=== PATIENT | male | born 1980 | race Caucasian/White ===

== ENCOUNTER → 2017-11-12 09:03 | Outpatient (CLI) | payer OTHER, SELFPAY ==
[2017-11-12 10:16] LABS: Absolute Lymphocyte Count 0.77 X10^3/ul (0.83-4.51); Absolute Neutrophil Count 3.6 X10^3/uL (2.0-7.7); Basophil# 0.02 X10^3/uL; Basophil% 0.4 % (0-1); Eosinophil# 0.02 X10^3/uL; Eosinophils% 0.4 % (0-5); Hematocrit 44.5 % (40-54); Hemoglobin 15.7 g/dl (13.0-16.5); Lymphocyte # 0.77 X10^3/ul (4.0); Mean Corp Hgb Conc 35.3 g/gl (32-36); Mean Corpuscular Hgb 31.2 pg (27.0-32.0); Mean Corpuscular Volume 88.3 fL (80-94); Mean Platelet Vol. 11.9 fl (6.2-12.0); Monocyte# 0.74 X10^3/uL; Monocyte% 14.4 % (0-10); Neutrophil # 3.58 X10^3/uL (2.7-7.7); Neutrophil % 69.8 % (47-70); Platelet Count 115 K/mm3 (150-450); RBC Distribution Width CV 12.2 % (11.6-14.6); RBC Distribution Width SD 39.2 fl (35.1-43.9); Red Blood Count 5.04 M/mm3 (4.6-6.2); White Blood Count 5.1 K/mm3 (4.4-11.0)
[2017-11-12 10:19] LABS: POSITIVE COUNT NO; POSITIVE DIFFERENTIAL NO; POSITIVE MORPHOLOGY NO
[2017-11-12 13:44] LABS: Hemoglobin A1c 5.2 % (4.2-6.3)
[2017-11-12 13:52] LABS: ALB/GLOB Ratio 1.2 RATIO (0.9-2.4); AST(SGOT) 22 U/L (15-37); Alanine Aminotransfer ALT/SGPT 33 U/L (16-61); Albumin, Serum 3.9 g/dL (3.2-5.0); Alkaline Phosphatase 77 U/L (45-117); BUN 15 mg/dL (7-18); Calcium,Total 8.8 mg/dL (8.5-10.1); Cholesterol 103 mg/dL (200); EST Glomerular Filtration Rate 89 mL/min (>60); Est Glom Filt Rate - Afr Amer 108 mL/min (>60); Globulin 3.3 g/dL (2.2-4.2); Glucose 83 mg/dL (74-106); Protein, Total 7.2 g/dL (6.4-8.2); Triglycerides 72 mg/dL
[2017-11-12 13:53] LABS: Anion Gap 8 (5-15); Chloride 102 mmol/L (98-107); Ferritin 232 ng/mL (26-388); Follicle Stimulating Hormone 1.5 mIU/mL; Free T3 2.7 pg/mL (2.18-3.98); High Density Lipoprotein 35 mg/dL; Iron 25 ug/dL (65-175); Iron Binding Capacity,Total 241 ug/dL (250-450); Luteinizing Hormone 2.6 mIU/mL; PERCENT IRON SATURATION 10.4 % (15.0-55.0); PSA,Total - Annual Screen 0.37 ng/mL (0.00-4.00); Potassium 3.7 mmol/L (3.5-5.1); Sodium Level 138 mmol/L (136-145); T4 Free Direct 1.25 ng/dL (0.76-1.46); Very Low Density Lipoprotein 14 mg/dL (5-40)
[2017-11-16 09:55] LABS: DHEA Sulfate 198.7 ug/dL (102.6-416.3); Estrogen, Total, Serum 97 pg/mL (40-115); Testosterone Free 8.7 pg/mL (8.7-25.1)
[2017-11-16 15:44] LABS: Adrenocorticotropic Hormone 18.7 pg/mL (7.2-63.3); Sex Hormone-binding Globulin 24.8 nmol/L (16.5-55.9)
== END ==
PROVIDERS: Family Provider Family Medicine; PCP Family Medicine; Visit Provider Internal Medicine Endocrinology, Diabetes & Metabolism
DX: E29.1 Testicular hypofunction (principal); R53.83 Other fatigue; Z13.1 Encounter for screening for diabetes mellitus
CPT/HCPCS: 36415; 80053; 80061; 82024; 82533; 82627; 82672; 82728; 83001; 83002; 83036; 83540; 83550; 84153; 84270; 84402; 84403; 84439; 84443; 84481; 85025; 82626; G0103

== ENCOUNTER → 2017-11-22 08:13 | Outpatient (CLI) | payer OTHER, SELFPAY ==
--- NOTE | 2017-11-22 08:16 | US_ITS ---
STUDY: ULTRASOUND BREAST - RIGHT REASON FOR EXAM: Male, 37 years old. History of right breast cysts. TECHNIQUE: Axial and longitudinal images of the RIGHT breast were performed with a high resolution ultrasound transducer. COMPARISON: Comparison is made with prior similar examination dated March 07, 2016. FINDINGS: RIGHT Breast: Once again, in the retroareolar region of the right breast, there are 2 subcentimeter cysts. The larger measures 4 mm x 3 mm x 2 mm. US/Breast Limited Unilateral IMPRESSION: Stable examination. ASSESSMENT CATEGORY: BIRADS Category 2: Benign. A letter regarding these results will be sent to the patient by the facility within 30 days. Electronically Signed: Wilmer Camejo MD at 10:54 EST Tel [phone], Service support ,
--- NOTE | 2017-11-22 11:14 | MRI_ITS ---
STUDY: MRI BRAIN WITH AND WITHOUT CONTRAST REASON FOR EXAM: Male, 37 years old. Low testosterone TECHNIQUE: Standardized multiplanar fat and water weighted pulse sequences were obtained. 10 ml of Gadavist contrast material was administered intravenously for the contrast portion of the examination. COMPARISON: April 27, 2013 FINDINGS: Normal size of the ventricles and extra-axial spaces for the patient's age. Normal white matter tracts of the supratentorial brain. There is no evidence for recent intracranial ischemia or other cause of cytotoxic edema on diffusion weighted imaging (DWI). Normal bilateral basal ganglia. Normal thalami. There is no extra-axial fluid accumulation. Normal flow voids within the major intracranial circulation suggesting patency by spin echo criteria. Normal venous enhancement. There is no enhancing intra-axial or extra-axial abnormality. Normal sella turcica, pituitary gland, infundibular stalk, optic chiasm and hypothalamus. Normal tectal plate and pineal gland. Normal midbrain, guera and medulla. Normal cerebellum. Normal basal cisterns. Normal bilateral temporal bones. Normal bilateral internal auditory canals. No demonstrated orbital abnormality, within the constraints of a routine brain study. There is an air-fluid level and mucosal thickening in the left maxillary sinus. Normal calvarium and skull base. Normal visualized soft tissue structures. Normal visualized upper cervical spine. IMPRESSION: Normal unenhanced and enhanced MRI of the brain. Acute left maxillary sinusitis. Electronically Signed: Chidi Dutta MD at 23:58 EST , Service support , STUDY: MRI BRAIN WITH AND WITHOUT CONTRAST (ATTENTION PITUITARY GLAND) REASON FOR EXAM: Male, 37 years old. Low testosterone TECHNIQUE: Standardized multiplanar fat and water weighted pulse sequences were obtained. 10 ml of Gadavist contrast material was administered intravenously for the contrast portion of the examination. COMPARISON: See also MR brain from today FINDINGS: Normal size of the pituitary gland for the patient?s age and gender. Normal enhancement of the pituitary gland, without a demonstrated intrapituitary lesion. Normal infundibular stalk and suprasellar cistern. Normal optic chiasm and hypothalamus. Normal size of the ventricles and extra-axial spaces for the patient's age. Normal white matter tracts of the supratentorial brain. Normal bilateral basal ganglia. Normal thalami. Normal flow voids within the major intracranial circulation suggesting patency by spin echo criteria. Normal venous enhancement. There is no enhancing intra-axial or extra-axial abnormality. There is no extra-axial fluid accumulation. Normal tectal plate and pineal gland. Normal midbrain, guera and medulla. Normal cerebellum. Normal basal cisterns. Normal bilateral temporal bones. Normal bilateral internal auditory canals. No demonstrated orbital abnormality, within the constraints of a routine brain study. Left maxillary sinusitis. Normal calvarium and skull base. Normal visualized upper cervical spine. Normal visualized soft tissue structures. MRI/Brain W/WO Contrast IMPRESSION: Normal unenhanced and enhanced MRI of the pituitary gland. Acute left maxillary sinusitis. Electronically Signed: Chidi Dutta MD at 23:59 EST , Service support ,
== END ==
PROVIDERS: Family Provider Family Medicine; PCP Family Medicine; Visit Provider Internal Medicine Endocrinology, Diabetes & Metabolism
DX: N63.10 Unspecified lump in the right breast, unspecified quadrant (principal); E29.1 Testicular hypofunction
CPT/HCPCS: 70553; 76642; A9585

== ENCOUNTER → 2018-07-23 07:01 | Outpatient (CLI) | payer OTHER, SELFPAY ==
[2018-07-23 10:02] LABS: Absolute Lymphocyte Count 1.47 X10^3/ul (0.83-4.51); Absolute Neutrophil Count 5.1 X10^3/uL (2.0-7.7); Basophil# 0.01 X10^3/uL; Basophil% 0.1 % (0-1); Eosinophil# 0.09 X10^3/uL; Eosinophils% 1.2 % (0-5); Hematocrit 47.6 % (40-54); Hemoglobin 15.8 g/dl (13.0-16.5); Lymphocyte # 1.47 X10^3/ul (4.0); Lymphocyte % 19.8 % (19-41); Mean Corp Hgb Conc 33.2 g/gl (32-36); Mean Corpuscular Hgb 31.2 pg (27.0-32.0); Mean Corpuscular Volume 94.1 fL (80-94); Monocyte# 0.72 X10^3/uL; Monocyte% 9.7 % (0-10); Neutrophil # 5.12 X10^3/uL (2.7-7.7); Neutrophil % 69.1 % (47-70); Platelet Count 194 K/mm3 (150-450); RBC Distribution Width CV 13.4 % (11.6-14.6); RBC Distribution Width SD 45.6 fl (35.1-43.9); Red Blood Count 5.06 M/mm3 (4.6-6.2); White Blood Count 7.4 K/mm3 (4.4-11.0)
[2018-07-23 10:03] LABS: POSITIVE COUNT NO; POSITIVE DIFFERENTIAL NO; POSITIVE MORPHOLOGY NO
[2018-07-23 10:19] LABS: ALB/GLOB Ratio 1.1 RATIO (0.9-2.4); AST(SGOT) 29 U/L (15-37); Alanine Aminotransfer ALT/SGPT 54 U/L (16-61); Albumin, Serum 3.9 g/dL (3.2-5.0); Alkaline Phosphatase 57 U/L (45-117); Anion Gap 7 (5-15); BUN 15 mg/dL (7-18); BUN/Creat Ratio 14.9 RATIO (10-20); Calcium,Total 9.2 mg/dL (8.5-10.1); Chloride 107 mmol/L (98-107); Creatinine, Serum 1.01 mg/dL (0.70-1.30); EST Glomerular Filtration Rate 87 mL/min (>60); Est Glom Filt Rate - Afr Amer 106 mL/min (>60); Estradiol < 11.0 pg/mL; Globulin 3.6 g/dL (2.2-4.2); Glucose 68 mg/dL (74-106); Potassium 4.3 mmol/L (3.5-5.1); Protein, Total 7.5 g/dL (6.4-8.2); Sodium Level 139 mmol/L (136-145)
[2018-07-28 16:07] LABS: Testosterone, Free 16.28 ng/dL (5.00-21.00)
[2018-07-30 13:10] LABS: Testosterone, % Free 7.11 % (1.50-4.20); Testosterone, Total 229 ng/dL (264-916)
== END ==
PROVIDERS: Family Provider Family Medicine; PCP Family Medicine; Referring Provider Internal Medicine Endocrinology, Diabetes & Metabolism; Visit Provider Internal Medicine Endocrinology, Diabetes & Metabolism
DX: E29.1 Testicular hypofunction (principal)
CPT/HCPCS: 36415; 80053; 82670; 84402; 84403; 85025

== ENCOUNTER → 2018-09-19 14:39 | Outpatient (CLI) | payer OTHER, SELFPAY ==
[2018-07-21 07:48] VITALS: BMI 31.6
--- NOTE | 2018-09-19 14:42 | RAD_ITS ---
STUDY: X-RAY - LEFT KNEE REASON FOR EXAM: Male, 38 years old. Pain TECHNIQUE: 3 view(s) of the knee. COMPARISON: None. FINDINGS: Normal visualized distal femur. Normal visualized proximal tibia and fibula. Normal proximal tibiofibular articulation. There is no demonstrated fracture. Normal medial femorotibial compartment. Normal lateral femorotibial compartment. Normal patellofemoral articulation. There is no demonstrated joint effusion. The soft tissue structures are unremarkable. RAD/Knee 3 Views IMPRESSION: Normal x-ray examination of the knee. Electronically Signed: Tanner Hart MD at 23:58 EST , Service support ,
== END ==
PROVIDERS: Family Provider Family Medicine; PCP Family Medicine; Referring Provider Family Medicine; Visit Provider Family Medicine
DX: M25.562 Pain in left knee (principal)
CPT/HCPCS: 73562

== ENCOUNTER 2018-10-16 13:27 | Outpatient (RCR) | payer OTHER, SELFPAY ==
--- NOTE | 2018-10-20 07:38 | HP.PTEVAL_ITS ---
Patient's Visit Information NAPOLEON GONZALEZ is a 38 year old M referred to Physical Therapy by Fernando Ricardo MD with a diagnosis of L knee pain. Date of Evaluation: 10/16/18 Physical Therapist: Antonio Martinez DPT - Visit Plan Frequency: 2x /Week Duration: 4 Weeks Plan: I suggest patient receive an MRI at this point in time. I do believe he has a posterior horn meniscal tear. I gave him some stretching exercises to work on TKE and light isometrics to increase L quad/HS muscle activitation. - Subjective Findings: Pt. is here today for his initial evaluation with diagnosis of L knee pain. He reprots having pain for ~3-4 weeks now. 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 At end range flexion pt. reports feeling a crunch in his L knee. Pt. has had pain ever since. Pt. reports pain with wa lking, end ranges of motion, walking, any attempts with lifting and with stair negotiation. Pt. also notices marked L VMO atrophy. Pt. is concerned that he torn something when this happened. Pt. reports no improvement. He has trialed ice, medication, icing, stretching with no change. 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 Pt. is hopeful to figure out what is going on in his knee. - Pain L knee pain Pain Intensity (Out of 10): 4 Pain Intensity Range: 2, 8 - Objective POSTURE: Pt. has normal posture, except sligth R lateral lean and lacking L TKE. Pt. repots increased posterior pain with attempts to extend. PALPATION: Pt. has slight joint effusion. Pt. has increased pain at medial and lateral joint line of L knee. Pt. also has greater pain at popliteal fossa both medial and laterally. NEURO: All intact without issues. Pt. has normal DTR of bilateral a chilless and patellar tendons. ROM: R knee 0-0-137deg. L knee 0-5-120deg increased pain with both flexion and extension. MMT: RLE- 5/5 throughout; L knee- ext 4/5 increase NW, flexion 4/5 increase NW; hip- 5/5 throughout. GAIT: Pt. has antalgic pattern during L stance phase. Pt. lacks R TKE during stance. STAIRS: Pt. has increased pain with both ascending and descending during L loading phases. - Special Tests L Knee Jerry - Meniscus: Positive L Knee Apley - Meniscus: Positive L Knee Disco Test - Meniscus: Positive L Knee Luz - ACL: Negative L Knee Posterior Drawer - PCL: Negative L Knee Posterior Sag - PCL: Negative L Knee Valgus - MCL: Negative L Knee Varus - LCL: Negative L Knee Patellar Apprehension - PFS: Negative - Goals Goal 1:: Pt. to be I with HEP. Goal Time Frame: 4-6 Weeks Goal 2:: Pt. to have increased L knee ROM to full without increased in symptoms. Goal Time Frame: 4-6 Weeks Goal 3:: Pt. to walk and negotiate steps without incerase in symptoms. Goal Time Frame: 4-6 Weeks Goal 4:: Pt. to have increased LLE strength increased by 1/2 grade of all effected musculature to increase stability of L knee. Goal Time Frame: 4-6 Weeks Goal 5:: Pt. to return to all work and recreational activities withtou incerase in symtpoms. Goal Time Frame: 4-6 Weeks - Rehabilitation Potential Physical Therapy Diagnosis: Pt. appears to have a L menical tear, most likely to posterior horn. I can not rule out ACL injury as he was highly guarding. Due to mechanism of injury I would say most likely not an ACL tear. Pt. reports no steriod use, less likely to have ligament laxity. I would suggest patient recieve an MRI on his L knee allowing a quicker recovery and return back to work. Rehabilitation Potential: Fair - Anticipated Interventions Patient/Client Instruction: Educate patient on: Condition, Plan of Care, Risk Factors, Benefits of Fitness Program For the Purpose of:: To foster healthy habits, To improve decision making, To facilitate caregiver knowledge, To improve self management, To prevent re- injury, To improve ability to perform tasks related to life management, To improve tolerance to ADL's Therapeutic Exercise to Include: Strength training, Power training, Endurance training, Balance training, Postural training, Flexibilty training, Gait and locomotor training, Passive ROM, Active ROM For the Purpose of:: To decrease pain, To decrease swelling/inflammation, To increase ROM, To improve nutrient delivery to tissue, To increase oxygenation perfusion, To improve muscle performance and motor function, To improve health of tissue, To decrease soft tissue restriction, To increase flexibility/ROM, To improve endurance, To improve balance TENS: Yes IF ES: Yes Cryotherapy (ice pack, ice massage): Yes Ultrasound (thermal/non thermal): Yes For the Purpose of:: To decrease pain, To decrease swelling/inflammation, To increase ROM Thank you for the opportunity to evaluate your patient. For Medicare and Medicare HMO plans, please review the plan of care and approve it. It will need to be FAXED BACK to us at [phone] for Medicare purposes. For Medicare only, by signing this I certify the plan of care. Please let me know if there are questions or concerns regarding this plan of care. Physician Signature: Date:
--- OUTSIDE RECORDS SUMMARY | 2018-12-21 08:01 | XMS RPT_ITS ---
:1980 Author Organization OHIP Support Name Relationship Address Phone TARUN GONZALEZHA Unavailable [address] + [place] [address] WOOCI Unavailable [address] + [place] [address] GONZALEZ, KYLE Unavailable [address] + [place] [address] WOOCI Unavailable [address] + [place] [address] GONZALEZ, KYLE Unavailable [address] + [place] [address] WOOCI Unavailable [address] + [place] [address] GONZALEZ, KYLE Unavailable [address] + [place] [address] WOOCI Unavailable [address] + [place] [address] GONZALEZ, KYLE Unavailable [address] + [place] [address] WOOCI Unavailable [address] + [place] [address] GONZALEZ, KYLE Unavailable [address] + [place] [address] WOOCI Unavailable [address] + [place] [address] GONZALEZ, KYLE Unavailable [address] + [place] [address] WOOCI Unavailable [address] + [place] [address] GONZALEZ, KYLE Unavailable [address] + [place] [address] WOOCI Unavailable [address] + [place] [address] CARLOS, KYLE Unavailable [address] + [place] [address] WOOCI Unavailable [address] + [place] [address] CARLOS, KYLE Unavailable [address] + [place] [address] WOOCI Unavailable [address] + [place] [address] CARLOS, KYLE Unavailable [address] + [place] [address] WOOCI Unavailable [address] + [place] [address] GONZALEZ, KYLE Unavailable [address] + [place] [address] WOOCI Unavailable [address] + [place] [address] Care Team Providers Name Role Phone Elton Ricardo Attending Unavailable Ranney, Christopher Referring Unavailable Ranney, Christopher Primary Care Unavailable RanSyd boldener Attending Unavailable Ranney, Christopher Primary Care Unavailable Ryan Iraheta Attending Unavailable Ranney, Christopher Referring Unavailable Ryan Iraheta Attending Unavailable Fast, Christina Primary Care Unavailable Raghunathan, Rut N. Attending Unavailable Ranney, Christopher Primary Care Unavailable Raghunathan, Rut N. Attending Unavailable Raghunathan, Rut N. Referring Unavailable Ranney, Christopher Primary Care Unavailable Nicolas Cobb Attending Unavailable Ranney, Christopher Referring Unavailable Ranney, Christopher Primary Care Unavailable ASSESSMENT, HEALTH RISK Attending Unavailable Ranney, Christopher Primary Care Unavailable Nicolas Cobb Attending Unavailable Davion, Christopher Referring Unavailable Ragpacheco, Rut N. Attending Unavailable Ranney, Christopher Primary Care Unavailable Raghunathan, Rut N. 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 [facility] E29.1(ICD-10) Hospital Repository 07/21/2018 Unknown Z11.1 - Encounter Nicolas Cobb Active [place] for screening for [facility] respiratory Hospital tuberculosis / Repository Z11.1(ICD-10) 12/30/2017 Unknown Z00.00 - Encounter Nicolas Cobb Active [place] for general adult [facility] examination Repository without abnormal findings / Z00.00(ICD-10) 12/10/2017 Unknown N63.10 - Raghunathan, Active [place] Unspecified lump [place] [facility] Hospital breast, Repository unspecified quadrant / N63.10(ICD-10) 11/12/2017 Unknown Z13.1 - Encounter Raghunathan, Active [place] for screening for [place] N. [facility] diabetes mellitus Hospital / Z13.1(ICD-10) Repository 11/12/2017 Unknown R53.83 - Other Raghunathan, Active [place] fatigue / [place] N. Community R53.83(ICD-10) Hospital Repository 11/11/2017 Admitting Unknown / Monika De Anda Active [facility] diagnosis UNK(Unknown) [facility] Repository PROCEDURES PROCEDURES No Procedure Records FoundRESULTS RESULTS INITAL EVALUATION (1) Observed: 10/20/2018 Status: F Source: [place] - PT 7:38 AM [facility] REPOSITORY [facility] Physical Therapy Health[address] [place] [address] / REHABILITATION SERVICES INITIAL EVALUATION MR#: [id number] Acct: [id number] Name: NAPOLEON GONZALEZ Rep #: [id number] : 1980 38 From: Antonio Martinez DPT Referring Dr.: Elton Ricardo MD Status: REG RCR Insurance: [employer] SELF PAY INSURANCE Patient's Visit Information NAPOLEON GONZALEZ is a 38 year old M referred to Physical Therapy by Fernando Ricardo MD with a diagnosis of L knee pain. Date of Evaluation: 10/16/18 Physical Therapist: Antonio Martinez DPT - Visit Plan Frequency: 2x /Week Duration: 4 Weeks Plan: I suggest patient receive an MRI at this point in time. I do believe he has a posterior horn meniscal tear. I gave him some stretching exercises to work on TKE and light isometrics to increase L quad/HS muscle activitation. - Subjective Findings: Pt. is here today for his initial evaluation with diagnosis of L knee pain. He reprots having pain for 3-4 weeks now. 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 At end range flexion pt. reports feeling a crunch in his L knee. Pt. has had pain ever since. Pt. reports pain with walking, end ranges of motion, walking, any attempts with lifting and with stair negotiation. Pt. also notices marked L VMO atrophy. Pt. is concerned that he torn something when this happened. Pt. reports no improvement. He has trialed ice, medication, icing, stretching with no change. 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 Pt. is hopeful to figure out what is going on in his knee. - Pain L knee pain Pain Intensity (Out of 10): 4 Pain Intensity Range: 2, 8 - Objective POSTURE: Pt. has normal posture, except sligth R lateral lean and lacking L TKE. Pt. repots increased posterior pain with attempts to extend. PALPATION: Pt. has slight joint effusion. Pt. has increased pain at medial and lateral joint line of L knee. Pt. also has greater pain at popliteal fossa both medial and laterally. NEURO: All intact without issues. Pt. has normal DTR of bilateral achilless and patellar tendons. ROM: R knee 0-0-137deg. L knee 0-5-120deg increased pain with both flexion and extension. MMT: RLE- 5/5 throughout; L knee- ext 4/5 increase NW, flexion 4/5 increase NW; hip- 5/5 throughout. GAIT: Pt. has antalgic pattern during L stance phase. Pt. lacks R TKE during stance. STAIRS: Pt. has increased pain with both ascending and descending during L loading phases. - Special Tests L Knee Jerry - Meniscus: Positive L Knee Apley - Meniscus: Positive L Knee Disco Test - Meniscus: Positive L Knee Luz - ACL: Negative L Knee Posterior Drawer - PCL: Negative L Knee Posterior Sag - PCL: Negative L Knee Valgus - MCL: Negative L Knee Varus - LCL: Negative L Knee Patellar Apprehension - PFS: Negative - Goals Goal 1:: Pt. to be I with HEP. Goal Time Frame: 4-6 Weeks Goal 2:: Pt. to have increased L knee ROM to full without increased in symptoms. Goal Time Frame: 4-6 Weeks Goal 3:: Pt. to walk and negotiate steps without incerase in symptoms. Goal Time Frame: 4-6 Weeks Goal 4:: Pt. to have increased LLE strength increased by 1/2 grade of all effected musculature to increase stability of L knee. Goal Time Frame: 4-6 Weeks Goal 5:: Pt. to return to all work and recreational activities withtou incerase in symtpoms. Goal Time Frame: 4-6 Weeks - Rehabilitation Potential Physical Therapy Diagnosis: Pt. appears to have a L menical tear, most likely to posterior horn. I can not rule out ACL injury as he was highly guarding. Due to mechanism of injury I would say most likely not an ACL tear. Pt. reports no steriod use, less likely to have ligament laxity. I would suggest patient recieve an MRI on his L knee allowing a quicker recovery and return back to work. Rehabilitation Potential: Fair - Anticipated Interventions Patient/Client Instruction: Educate patient on: Condition, Plan of Care, Risk Factors, Benefits of Fitness Program For the Purpose of:: To foster healthy habits, To improve decision making, To facilitate caregiver knowledge, To improve self management, To prevent re-injury, To improve ability to perform tasks related to life management, To improve tolerance to ADL's Therapeutic Exercise to Include: Strength training, Power training, Endurance training, Balance training, Postural training, Flexibilty training, Gait and locomotor training, Passive ROM, Active ROM For the Purpose of:: To decrease pain, To decrease swelling/inflammation, To increase ROM, To improve nutrient delivery to tissue, To increase oxygenation perfusion, To improve muscle performance and motor function, To improve health of tissue, To decrease soft tissue restriction, To increase flexibility/ROM, To improve endurance, To improve balance TENS: Yes IF ES: Yes Cryotherapy (ice pack, ice massage): Yes Ultrasound (thermal/non thermal): Yes For the Purpose of:: To decrease pain, To decrease swelling/inflammation, To increase ROM Thank you for the opportunity to evaluate your patient. For Medicare and Medicare HMO plans, please review the plan of care and approve it. It will need to be FAXED BACK to us at [phone] for Medicare purposes. For Medicare only, by signing this I certify the plan of care. Please let me know if there are questions or concerns regarding this plan of care. Physician Signature: Date: <Electronically signed by Antonio Martinez DPT> 10/20/18 0738 CC: Elton Ricardo MD CLS Signed KNEE 3 VIEWS Observed: 09/19/2018 Status: F Source: [place] 2:43 PM [facility] REPOSITORY [facility] Imaging Services [address] [place] [address] Knee 3 Views MR#: [id number] Acct: [id number] Name: NAPOLEON GONZALEZ Rep #: [id number] : 1980 M 38 From: Tanner Hart MD PCP: Elton Ricardo MD Status: REG CLI Study: Knee 3 Views Date of Exam: 09/19/18 Exam# [id number] Ordering Dr: Fernando Ricardo MD STUDY: X-RAY - LEFT KNEE REASON FOR EXAM: Male, 38 years old. Pain TECHNIQUE: 3 view(s) of the knee. COMPARISON: None. FINDINGS: Normal visualized distal femur. Normal visualized proximal tibia and fibula. Normal proximal tibiofibular articulation. There is no demonstrated fracture. Normal medial femorotibial compartment. Normal lateral femorotibial compartment. Normal patellofemoral articulation. There is no demonstrated joint effusion. The soft tissue structures are unremarkable. RAD/Knee 3 Views IMPRESSION: Normal x-ray examination of the knee. 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: Signed CBC W/DIFF, AUTOMATED Collected: 07/23/2018 Status: F Source: [place] 7:04 AM [facility] REPOSITORY TYPE CODE TESTS RESULT OUT OF RANGE REFERENCE UNITS LAB L100.1000 4.4-11.0 K/mm3 Normal WBC 7.4 LAB L100.1200 4.6-6.2 M/mm3 Normal RBC 5.06 LAB L100.1300 13.0-16.5 g/dl Normal HGB 15.8 LAB L100.1400 40-54 % Normal HCT 47.6 LAB L100.1500 80-94 fL High MCV 94.1 LAB L100.1600 27.0-32.0 pg Normal MCH 31.2 LAB L100.1700 32-36 g/gl Normal MCHC 33.2 LAB L100.1810 11.6-14.6 % Normal RDW CV 13.4 LAB L100.1820 35.1-43.9 fl High RDW SD 45.6 LAB L100.1900 150-450 K/mm3 Normal PLT 194 LAB L100.2000 6.2-12.0 fl Normal MPV 11.0 LAB L100.2100 47-70 % Normal NEUT% 69.1 LAB L100.2200 19-41 % Normal LY% 19.8 LAB L100.2300 0-10 % Normal MONO% 9.7 LAB L100.2400 0-5 % Normal EO% 1.2 LAB L100.2500 0-1 % Normal BASO% 0.1 LAB L100.2550 0.0-0.9 % Normal IM GRAN % 0.100 Result Comment: IG% - Immature Granulocytes (promyelocytes, myelocytes and metamyelocytes) > 1% indicates that a LEFT SHIFT is Present. LAB L100.2620 2.0-7.7 X10 3/uL Normal Absolute Neut 5.1 LAB L100.2720 0.83-4.51 X10 3/ul Normal Absolute Lymph 1.47 Performed By: #### L100.0100 #### [facility] [address] [place], [address] COMPREHENSIVE METABOLIC Collected: 07/23/2018 Status: F Source: [place] [facility] 7:04 AM [facility] REPOSITORY TYPE CODE TESTS RESULT OUT OF RANGE REFERENCE UNITS LAB L501.0100 74-106 mg/dL Low GLU 68 Result Comment: Please note revised GLUCOSE reference range effective 2017. LAB L501.1000 7-18 mg/dL Normal BUN 15 LAB L501.1100 0.70-1.30 mg/dL Normal CREAT,SERUM 1.01 Result Comment: The validity of the calculated GFR AND GFRAA in patients over 70 years has not been determined. Clinical correlation is essential. LAB L501.1110 >60 mL/min Normal EST GFR 87 Result Comment: Non- GFR Calc LAB L501.1115 >60 mL/min Normal EST GFR - AA 106 Result Comment: GFR Calc LAB L501.1300 10-20 RATIO Normal BUN/CRE 14.9 LAB L501.1500 6.4-8.2 g/dL T Normal PROT 7.5 LAB L501.1800 3.2-5.0 g/dL Normal ALB 3.9 LAB L501.1950 2.2-4.2 g/dL Normal GLOB 3.6 LAB L501.2000 0.9-2.4 RATIO Normal A/G 1.1 LAB L501.2200 8.5-10.1 mg/dL CA Normal 9.2 LAB L501.4100 15-37 U/L Normal AST 29 LAB L501.4305 45-117 U/L Normal ALK P 57 LAB L501.4405 16-61 U/L Normal ALT 54 LAB L501.4600 0.20-1.00 mg/dL T Normal BILI 0.40 LAB L501.5300 136-145 mmol/L NA Normal 139 LAB L501.5600 3.5-5.1 mmol/L K Normal 4.3 LAB L501.5900 98-107 mmol/L CL Normal 107 LAB L501.6100 21.0-32.0 mmol/L Normal CO2 25.0 LAB L501.6200 5-15 Normal GAP 7 Performed By: #### L500.4050, L3300.1750 #### [facility] [address] [place], [address] ESTRADIOL Collected: 07/23/2018 Status: F Source: [place] 7:04 AM [facility] REPOSITORY TYPE CODE TESTS RESULT OUT OF RANGE REFERENCE UNITS LAB L3300.1750 pg/mL Normal ESTRADIOL < 11.0 Result Comment: NORMAL REFERENCE RANGES FEMALE FOLLICULAR 21.4 - 164.8 pg/mL MID-CYCLE PEAK 49.9 - 367.2 pg/mL LUTEAL 40.2 - 259.0 pg/mL POST-MENOPAUSAL ON MHT <11.0 - 462.1 pg/mL NOT ON MHT <11.0 - 58.3 pg/mL MALE <11.0 - 52.5 pg/mL NOTE: [facility] HAS CONFIRMED THE DRUG FULVETRANT (FASLODEX) MAY CAUSE FALSELY ELEVATED ESTRADIOL RESULTS WHEN USING THIS TEST METHOD. IF PATIENT IS TAKING FULVESTRANT AN ALTERNATIVE METHOD SHOULD BE USED TO DETERMINE ESTRADIOL CONCENTRATION. Performed By: #### L500.4050, L3300.1750 #### [facility] [address] [place], [address] TESTOSTERONE, TOTAL / Collected: 07/23/2018 Status: F Source: [place] FREE 7:04 AM [facility] REPOSITORY Order Comment: Has Patient had X-rays with Contrast this admission? N TYPE CODE TESTS RESULT OUT OF RANGE REFERENCE UNITS LAB L3100.5320 264-916 ng/dL Low 229 TESTOSTER,TO ROSLYN Result Comment: Adult male reference interval is based on a population of healthy nonobese males (BMI <30) between 19 and 39 years old. Yaya et.al. JCEM 2017,102;9159-6929. PMID: [id number]. LAB L3100.5340 5.00-21.00 ng/dL TESTOSTER,FREE Normal 16.28 LAB L3100.5360 1.50-4.20 % TESTOSTER %FREE High 7.11 Result Comment: Results verified by repeat testing Performed at: [facility] [address] [place], [place] [id number] Health And Safety Coordinator: Chris Portillo PhD, Phone: [phone] Performed at: [facility] [id number] Health And Safety Coordinator: Olivier Cerda MD, Phone: [phone] Performed By: #### L3100.5310 #### [facility] (refer to report for specific site) refer to report for address and phone number OFFICE VISIT REPORT Observed: 07/21/2018 Status: F Source: [place] 8:16 [address] [place] [address] OFFICE VISIT Date of Service: 07/21/18 MR#: [id number] Acct: [id number] Patient: NAPOLEON GONZALEZ Rep #: [id number] : 1980 Provider: Nicolas KONG Age/Sex: 37/M Location: [facility] Status: Signed Intake Vital Signs07/21/18 Height 6 ft 07/21/18 Weight: 233 lb Intake Visit Reasons: WFD PHYSICAL Allergies shellfish derived Allergy (Verified 10/17/17 13:27) Anaphylaxis Medications No Known/Unobtainable [No Known Home Medications] 06/20/17 [History Confirmed 10/17/17] Office Procedures PPD Procedure TB Med Used: Tuberculin PPD 5 tub. unit/0.1 mL intradermal injection solution was administered Lot number: [id number] Station Engineer Chief: Sanofi Pasteur date: 11/12/20 PPD Location: Right forearm Date PPD Placed: 07/21/18 Time PPD Placed: 07:30 PPD Placed By: Halima Villegas Assessment AND Plan Orders Orders: 07/21/18 0816 <Electronically signed by Nicolas KONG> Date Nicolas KONG Cosigner Signature: Date (if applicable) CC: URINALYSIS, ROUTINE Collected: 07/21/2018 Status: F Source: [place] (DIPSTICK) 7:55 AM [facility] REPOSITORY Order Comment: How was Urine Obtained? CLEAN CATCH TYPE CODE TESTS RESULT OUT OF RANGE REFERENCE UNITS LAB L400.3000 Yellow COLOR Normal Yellow LAB L400.3050 Clear Normal CLARITY Clear LAB L400.3200 Normal mg/dl Normal GLUCOSE, UR Normal LAB L400.3300 Negative mg/dL Normal BILIRUBIN URINE Negative LAB L400.3400 Negative mg/dl Normal KETONE UR Negative LAB L400.3465 1.002-1.030 Normal SP.GR. DIPSTX 1.015 LAB L400.3550 5.0 - 8.0 pH UR Normal 6.0 LAB L400.3600 Negative mg/dl PROT Normal DIPSTX Negative LAB L400.3700 Normal mg/dl Normal UROBILI Normal LAB L400.3750 Negative Normal NITRITE UR Negative LAB L400.3780 Negative /ul Normal OCCULT BLOOD-UR Negative LAB L400.3800 Negative /ul High LEUK 25 ESTERASE Performed By: #### L400.2010 #### [facility] [address] [place], [address] CBC W/DIFF, AUTOMATED Collected: 07/21/2018 Status: F Source: [place] 7:55 AM [facility] REPOSITORY TYPE CODE TESTS RESULT OUT OF RANGE REFERENCE UNITS LAB L100.1000 4.4-11.0 K/mm3 Normal WBC 5.2 LAB L100.1200 4.6-6.2 M/mm3 Normal RBC 5.13 LAB L100.1300 13.0-16.5 g/dl Normal HGB 15.8 LAB L100.1400 40-54 % Normal HCT 48.3 LAB L100.1500 80-94 fL High MCV 94.2 LAB L100.1600 27.0-32.0 pg Normal MCH 30.8 LAB L100.1700 32-36 g/gl Normal MCHC 32.7 LAB L100.1810 11.6-14.6 % Normal RDW CV 13.1 LAB L100.1820 35.1-43.9 fl High RDW SD 45.2 LAB L100.1900 150-450 K/mm3 Normal PLT 187 LAB L100.2000 6.2-12.0 fl Normal MPV 11.2 LAB L100.2100 47-70 % Normal NEUT% 47.9 LAB L100.2200 19-41 % Normal LY% 37.8 LAB L100.2300 0-10 % High MONO% 11.6 LAB L100.2400 0-5 % Normal EO% 2.5 LAB L100.2500 0-1 % Normal BASO% 0.2 LAB L100.2550 0.0-0.9 % Normal IM GRAN % 0.000 Result Comment: IG% - Immature Granulocytes (promyelocytes, myelocytes and metamyelocytes) > 1% indicates that a LEFT SHIFT is Present. LAB L100.2620 2.0-7.7 X10 3/uL Normal Absolute Neut 2.5 LAB L100.2720 0.83-4.51 X10 3/ul Normal Absolute Lymph 1.96 Performed By: #### L100.0100 #### [facility] [address] [place], [address] BASIC METABOLIC Collected: 07/21/2018 Status: F Source: [place] PROFILE (BMP) 7:55 AM [facility] REPOSITORY TYPE CODE TESTS RESULT OUT OF RANGE REFERENCE UNITS LAB L501.0100 74-106 mg/dL Low GLU 66 Result Comment: Please note revised GLUCOSE reference range effective 2017. LAB L501.1000 7-18 mg/dL Normal BUN 15 LAB L501.1100 0.70-1.30 mg/dL Normal CREAT,SERUM 1.09 Result Comment: The validity of the calculated GFR AND GFRAA in patients over 70 years has not been determined. Clinical correlation is essential. LAB L501.1110 >60 mL/min Normal EST GFR 80 Result Comment: Non- GFR Calc LAB L501.1115 >60 mL/min Normal EST GFR - AA 97 Result Comment: GFR Calc LAB L501.1300 10-20 RATIO Normal BUN/CRE 13.8 LAB L501.2200 8.5-10.1 mg/dL CA Normal 8.9 LAB L501.5300 136-145 mmol/L NA Normal 139 LAB L501.5600 3.5-5.1 mmol/L K Normal 4.4 LAB L501.5900 98-107 mmol/L CL Normal 104 LAB L501.6100 21.0-32.0 mmol/L Normal CO2 28.0 LAB L501.6200 5-15 Normal GAP 7 Performed By: #### L500.2500, L500.4100, L501.9910 #### [facility] [address] [place], [place], [address] LIPID PROFILE Collected: 07/21/2018 Status: F Source: [place] 7:55 AM [facility] REPOSITORY TYPE CODE TESTS RESULT OUT OF RANGE REFERENCE UNITS LAB L501.4900 200 mg/dL Normal CHOL 121 Result Comment: <200 mg/dL Desirable 200-240 mg/dL Borderline >240 mg/dL High Risk LAB L501.5000 mg/dL Normal TRIG 37 Result Comment: The drugs N-Acetylcysteine and Metamizole may falsely depress this assay. Serum Triglycerides Reference Interval Normal <150 mg/dL Borderline high 150 - 199 mg/dL High 200 - 499 mg/dL Very High > or = 500 mg/dL LAB L501.6400 mg/dL Low HDL 23 Result Comment: The drugs N-Acetylcysteine and Metamizole may falsely depress this assay. Reference Range HDL <40 mg/dL Low HDL Cholesterol HDL >or= 60 mg/dL High HDL Cholesterol LAB L501.6500 0-130 mg/dL Normal LDL 91 LAB L501.6600 5-40 mg/dL Normal VLDL 7 Performed By: #### L500.2500, L500.4100, L501.9910 #### [facility] [address] [facility] [place], [place], [address] PSA,TOTAL - ANNUAL Collected: 07/21/2018 Status: F Source: [place] SCREEN 7:55 AM [facility] REPOSITORY TYPE CODE TESTS RESULT OUT OF RANGE REFERENCE UNITS LAB L501.9910 0.00-4.00 ng/mL Normal PSA,TOT 0.34 SCREEN Result Comment: This test was performed using the TPSA assay method for the [employer] chemistry system. Values obtained with different assay methods cannot be used interchangably. When changing PSA assays in the course of monitoring a patient, additional sequential testing should be carried out to confirm baseline values. Performed By: #### L500.2500, L500.4100, L501.9910 #### [facility] [address] [place], [address] ABO RH BLOOD TYPE, Collected: 07/21/2018 Status: F Source: [place] PATIENT 7:55 AM [facility] REPOSITORY TYPE CODE TESTS RESULT OUT OF RANGE REFERENCE UNITS LAB B10.0800 B Normal BLOOD POSITIVE TYPE GEL Performed By: #### B10.0010 #### [facility] [address] [place], [address] URGENT CARE VISIT Observed: 12/30/2017 Status: F Source: [place] REPORT 8:57 AM [facility] REPOSITORY [facility] [place] [address] OFFICE VISIT Date of Service: 12/30/17 MR#: [id number] Acct: [id number] Name: NAPOLEON GONZALEZ Rep #: [id number] : 1980 Provider: Nicolas KONG Age/Sex: 37/M Location: [facility] Status: Signed Intake Intake Visit Reasons: WFD PHYSICAL Allergies shellfish derived Allergy (Verified 10/17/17 13:27) Anaphylaxis Medications No Known/Unobtainable [No Known Home Medications] 06/20/17 [History Confirmed 10/17/17] PFSH Medical History Lipoma (Acute) Family History Father No problems noted. 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 Please see corresponding scanned documents with today's date. 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 12/30/17 0857 <Electronically signed by Nicolas KONG> Date Nicolas Blackburn Signature: Date (if applicable) CC: BRAIN W/WO CONTRAST Observed: 11/22/2017 Status: F Source: [place] 11:15 AM [facility] REPOSITORY [facility] Imaging Services [address] [place] [address] Brain W/WO Contrast MR#: [id number] Acct: [id number] Name: NAPOLEON GONZALEZ Rep #: [id number] : 1980 M 37 From: Chidi Dutta MD PCP: Elton Ricardo MD Status: REG CLI Study: Brain W/WO Contrast Date of Exam: 11/22/17 Exam# [id number] Ordering Dr: Rut Falcon MD STUDY: MRI BRAIN WITH AND WITHOUT CONTRAST REASON FOR EXAM: Male, 37 years old. Low testosterone TECHNIQUE: Standardized multiplanar fat and water weighted pulse sequences were obtained. 10 ml of Gadavist contrast material was administered intravenously for the contrast portion of the examination. COMPARISON: April 27, 2013 FINDINGS: Normal size of the ventricles and extra-axial spaces for the patient's age. Normal white matter tracts of the supratentorial brain. There is no evidence for recent intracranial ischemia or other cause of cytotoxic edema on diffusion weighted imaging (DWI). Normal bilateral basal ganglia. Normal thalami. There is no extra-axial fluid accumulation. Normal flow voids within the major intracranial circulation suggesting patency by spin echo criteria. Normal venous enhancement. There is no enhancing intra-axial or extra-axial abnormality. Normal sella turcica, pituitary gland, infundibular stalk, optic chiasm and hypothalamus. Normal tectal plate and pineal gland. Normal midbrain, guera and medulla. Normal cerebellum. Normal basal cisterns. Normal bilateral temporal bones. Normal bilateral internal auditory canals. No demonstrated orbital abnormality, within the constraints of a routine brain study. There is an air-fluid level and mucosal thickening in the left maxillary sinus. Normal calvarium and skull base. Normal visualized soft tissue structures. Normal visualized upper cervical spine. IMPRESSION: Normal unenhanced and enhanced MRI of the brain. Acute left maxillary sinusitis. Electronically Signed: Chidi Dutta MD at 23:58 EST , Service support , STUDY: MRI BRAIN WITH AND WITHOUT CONTRAST (ATTENTION PITUITARY GLAND) REASON FOR EXAM: Male, 37 years old. Low testosterone TECHNIQUE: Standardized multiplanar fat and water weighted pulse sequences were obtained. 10 ml of Gadavist contrast material was administered intravenously for the contrast portion of the examination. COMPARISON: See also MR brain from today FINDINGS: Normal size of the pituitary gland for the patient?s age and gender. Normal enhancement of the pituitary gland, without a demonstrated intrapituitary lesion. Normal infundibular stalk and suprasellar cistern. Normal optic chiasm and hypothalamus. Normal size of the ventricles and extra-axial spaces for the patient's age. Normal white matter tracts of the supratentorial brain. Normal bilateral basal ganglia. Normal thalami. Normal flow voids within the major intracranial circulation suggesting patency by spin echo criteria. Normal venous enhancement. There is no enhancing intra-axial or extra-axial abnormality. There is no extra-axial fluid accumulation. Normal tectal plate and pineal gland. Normal midbrain, guera and medulla. Normal cerebellum. Normal basal cisterns. Normal bilateral temporal bones. Normal bilateral internal auditory canals. No demonstrated orbital abnormality, within the constraints of a routine brain study. Left maxillary sinusitis. Normal calvarium and skull base. Normal visualized upper cervical spine. Normal visualized soft tissue structures. MRI/Brain W/WO Contrast IMPRESSION: Normal unenhanced and enhanced MRI of the pituitary gland. Acute left maxillary sinusitis. Electronically Signed: Chidi Dutta MD at 23:59 EST , Service support , CC: Rut Falcon MD; Elton Ricardo MD Hot Metal Mixer Operator Helper: Signed BREAST LIMITED Observed: 11/22/2017 Status: F Source: [place] 8:17 AM [facility] REPOSITORY [facility] Imaging Services [address] [place] [address] Breast Limited Unilateral MR#: [id number] Acct: [id number] Name: NAPOLEON GONZALEZ Rep #: [id number] : 1980 M 37 From: Wilmer Camejo MD PCP: Elton Ricardo MD Status: REG CLI Study: Breast Limited Unilateral Date of Exam: 11/22/17 Exam# [id number] Ordering Dr: Rut Falcon MD STUDY: ULTRASOUND BREAST - RIGHT REASON FOR EXAM: Male, 37 years old. History of right breast cysts. TECHNIQUE: Axial and longitudinal images of the RIGHT breast were performed with a high resolution ultrasound transducer. COMPARISON: Comparison is made with prior similar examination dated March 07, 2016. FINDINGS: RIGHT Breast: Once again, in the retroareolar region of the right breast, there are 2 subcentimeter cysts. The larger measures 4 mm x 3 mm x 2 mm. US/Breast Limited Unilateral IMPRESSION: Stable examination. ASSESSMENT CATEGORY: BIRADS Category 2: Benign. A letter regarding these results will be sent to the patient by the facility within 30 days. Electronically Signed: Wilmer Camejo MD at 10:54 EST Tel [phone], Service support , CC: Rut Falcon MD; Elton Ricardo MD Hot Metal Mixer Operator Helper: Signed CBC W/DIFF, AUTOMATED Collected: 11/12/2017 Status: F Source: [place] 9:05 AM [facility] REPOSITORY TYPE CODE TESTS RESULT OUT OF RANGE REFERENCE UNITS LAB L100.1000 4.4-11.0 K/mm3 Normal WBC 5.1 LAB L100.1200 4.6-6.2 M/mm3 Normal RBC 5.04 LAB L100.1300 13.0-16.5 g/dl Normal HGB 15.7 LAB L100.1400 40-54 % Normal HCT 44.5 LAB L100.1500 80-94 fL Normal MCV 88.3 LAB L100.1600 27.0-32.0 pg Normal MCH 31.2 LAB L100.1700 32-36 g/gl Normal MCHC 35.3 LAB L100.1810 11.6-14.6 % Normal RDW CV 12.2 LAB L100.1820 35.1-43.9 fl Normal RDW SD 39.2 LAB L100.1900 150-450 K/mm3 Low PLT 115 LAB L100.2000 6.2-12.0 fl Normal MPV 11.9 LAB L100.2100 47-70 % Normal NEUT% 69.8 LAB L100.2200 19-41 % Low LY% 15.0 LAB L100.2300 0-10 % High MONO% 14.4 LAB L100.2400 0-5 % Normal EO% 0.4 LAB L100.2500 0-1 % Normal BASO% 0.4 LAB L100.2550 0.0-0.9 % Normal IM GRAN % 0.000 Result Comment: IG% - Immature Granulocytes (promyelocytes, myelocytes and metamyelocytes) > 1% indicates that a LEFT SHIFT is Present. LAB L100.2620 2.0-7.7 X10 3/uL Normal Absolute Neut 3.6 LAB L100.2720 0.83-4.51 X10 3/ul Low Absolute Lymph 0.77 Performed By: #### L100.0100 #### [facility] [address] [place], [address] HEMOGLOBIN A1C Collected: 11/12/2017 Status: F Source: [place] 9:05 AM [facility] REPOSITORY TYPE CODE TESTS RESULT OUT OF RANGE REFERENCE UNITS LAB L501.9985 4.2-6.3 % Normal HGB A1C 5.2 Performed By: #### L501.9985 #### [facility] [address] [place], [address] COMPREHENSIVE METABOLIC Collected: 11/12/2017 Status: F Source: QUE [facility] 9:05 AM [facility] REPOSITORY Order Comment: Has Patient had X-rays with Contrast this admission? N TYPE CODE TESTS RESULT OUT OF RANGE REFERENCE UNITS LAB L501.0100 74-106 mg/dL Normal GLU 83 Result Comment: Please note revised GLUCOSE reference range effective 2017. LAB L501.1000 7-18 mg/dL Normal BUN 15 LAB L501.1100 0.70-1.30 mg/dL Normal CREAT,SERUM 1.00 Result Comment: The validity of the calculated GFR AND GFRAA in patients over 70 years has not been determined. Clinical correlation is essential. LAB L501.1110 >60 mL/min Normal EST GFR 89 Result Comment: Non- GFR Calc LAB L501.1115 >60 mL/min Normal EST GFR - AA 108 Result Comment: GFR Calc LAB L501.1300 10-20 RATIO Normal BUN/CRE 15.0 LAB L501.1500 6.4-8.2 g/dL T Normal PROT 7.2 LAB L501.1800 3.2-5.0 g/dL Normal ALB 3.9 LAB L501.1950 2.2-4.2 g/dL Normal GLOB 3.3 LAB L501.2000 0.9-2.4 RATIO Normal A/G 1.2 LAB L501.2200 8.5-10.1 mg/dL CA Normal 8.8 LAB L501.4100 15-37 U/L Normal AST 22 LAB L501.4305 45-117 U/L Normal ALK P 77 LAB L501.4405 16-61 U/L Normal ALT 33 Result Comment: Please note revised ALT reference range effective 2017. LAB L501.4600 0.20-1.00 mg/dL Normal T BILI 0.60 LAB L501.5300 136-145 mmol/L Normal NA 138 LAB L501.5600 3.5-5.1 mmol/L Normal K 3.7 LAB L501.5900 98-107 mmol/L Normal CL 102 LAB L501.6100 21.0-32.0 mmol/L Normal CO2 28.0 LAB L501.6200 5-15 Normal GAP 8 Performed By: #### L500.4050, L500.4100, L501.49126, L501.9520, L501.9910, L503.6030, L503.6550, L506.0400, L3100.5125, L3100.5170 #### [facility] [address] [place], [address] LIPID PROFILE Collected: 11/12/2017 Status: F Source: [place] 9:05 AM [facility] REPOSITORY Order Comment: Has Patient had X-rays with Contrast this admission? N TYPE CODE TESTS RESULT OUT OF RANGE REFERENCE UNITS LAB L501.4900 200 mg/dL Normal CHOL 103 Result Comment: <200 mg/dL Desirable 200-240 mg/dL Borderline >240 mg/dL High Risk LAB L501.5000 mg/dL Normal TRIG 72 Result Comment: The drugs N-Acetylcysteine and Metamizole may falsely depress this assay. Serum Triglycerides Reference Interval Normal <150 mg/dL Borderline high 150 - 199 mg/dL High 200 - 499 mg/dL Very High > or = 500 mg/dL LAB L501.6400 mg/dL Low HDL 35 Result Comment: The drugs N-Acetylcysteine and Metamizole may falsely depress this assay. Reference Range HDL <40 mg/dL Low HDL Cholesterol HDL >or= 60 mg/dL High HDL Cholesterol LAB L501.6500 0-130 mg/dL Normal LDL 54 LAB L501.6600 5-40 mg/dL Normal VLDL 14 Performed By: #### L500.4050, L500.4100, L501.25297, L501.9520, L501.9910, L503.6030, L503.6550, L506.0400, L3100.5125, L3100.5170 #### [facility] [address] [facility] [place], [place], [address] FREE T3 Collected: 11/12/2017 Status: F Source: QUE 9:05 AM [facility] REPOSITORY Order Comment: Has Patient had X-rays with Contrast this admission? N TYPE CODE TESTS RESULT OUT OF RANGE REFERENCE UNITS LAB L501.07308 2.18-3.98 pg/mL Normal FREE T3 2.7 Performed By: #### L500.4050, L500.4100, L501.73087, L501.9520, L501.9910, L503.6030, L503.6550, L506.0400, L3100.5125, L3100.5170 #### [facility] [address] [facility] [place], [place], [id number] THYROID STIM HORMONE Collected: 11/12/2017 Status: F Source: QUE (TSH) 9:05 AM [facility] REPOSITORY Order Comment: Has Patient had X-rays with Contrast this admission? N TYPE CODE TESTS RESULT OUT OF RANGE REFERENCE UNITS LAB L501.9520 0.358-3.74 uIU/mL Normal TSH 0.70 Performed By: #### L500.4050, L500.4100, L501.94417, L501.9520, L501.9910, L503.6030, L503.6550, L506.0400, L3100.5125, L3100.5170 #### [facility] [address] [facility] [place], [place], [id number] PSA,TOTAL - ANNUAL Collected: 11/12/2017 Status: F Source: QUE SCREEN 9:05 AM [facility] REPOSITORY Order Comment: Has Patient had X-rays with Contrast this admission? N TYPE CODE TESTS RESULT OUT OF RANGE REFERENCE UNITS LAB L501.9910 0.00-4.00 ng/mL Normal PSA,TOT 0.37 SCREEN Result Comment: This test was performed using the TPSA assay method for the [employer] chemistry system. Values obtained with different assay methods cannot be used interchangably. When changing PSA assays in the course of monitoring a patient, additional sequential testing should be carried out to confirm baseline values. Performed By: #### L500.4050, L500.4100, L501.62028, L501.9520, L501.9910, L503.6030, L503.6550, L506.0400, L3100.5125, L3100.5170 #### [facility] [address] [facility] [place], [place], [address] IRON+IRON BINDING Collected: 11/12/2017 Status: F Source: [facility] 9:05 AM [facility] REPOSITORY Order Comment: Has Patient had X-rays with Contrast this admission? N TYPE CODE TESTS RESULT OUT OF REFERENCE UNITS RANGE LAB L503.6075 250-450 ug/dL Low TIBC 241 LAB L503.6150 65-175 ug/dL Low IRON 25 LAB L503.6250 15.0-55.0 % Low IRON SATURATION 10.4 Performed By: #### L500.4050, L500.4100, L501.27563, L501.9520, L501.9910, L503.6030, L503.6550, L506.0400, L3100.5125, L3100.5170 #### [facility] [address] [facility] [place], [place], [id number] (469) FERRITIN Collected: 11/12/2017 Status: F Source: [place] 9:05 [facility] REPOSITORY Order Comment: Has Patient had X-rays with Contrast this admission? N TYPE CODE TESTS RESULT OUT OF RANGE REFERENCE UNITS LAB L503.6550 26-388 ng/mL Normal FERRITIN 232 Performed By: #### L500.4050, L500.4100, L501.13421, L501.9520, L501.9910, L503.6030, L503.6550, L506.0400, L3100.5125, L3100.5170 #### [facility] [address] [facility] [place], [place], [id number] T4 FREE DIRECT Collected: 11/12/2017 Status: F Source: [place] 9:05 [facility] REPOSITORY Order Comment: Has Patient had X-rays with Contrast this admission? N TYPE CODE TESTS RESULT OUT OF RANGE REFERENCE UNITS LAB L506.0400 0.76-1.46 ng/dL Normal T4 FREE 1.25 DIRECT Performed By: #### L500.4050, L500.4100, L501.00254, L501.9520, L501.9910, L503.6030, L503.6550, L506.0400, L3100.5125, L3100.5170 #### [facility] [address] [place], [place], [address] FOLLICLE STIMULATING Collected: 11/12/2017 Status: F Source: [place] HORMONE 9:05 AM [facility] REPOSITORY Order Comment: Has Patient had X-rays with Contrast this admission? N TYPE CODE TESTS RESULT OUT OF RANGE REFERENCE UNITS LAB L3100.5125 mIU/mL Normal FSH 1.5 Result Comment: NORMAL REFERENCE RANGES FEMALE FOLLICULAR 2.3 - 12.6 mIU/mL MID-CYCLE PEAK 5.2 - 17.5 mIU/mL LUTEAL 1.7 - 12.9 mIU/mL POST-MENOPAUSAL ON MHT 5.9 - 72.8 mIU/mL NOT ON MHT 12.7 - 132.2 mlU/mL MALE 0.7 - 10.8 mIU/mL NEW TEST METHOD AND REFERENCE RANGES FEBRUARY 18, 2012 Performed By: #### L500.4050, L500.4100, L501.17433, L501.9520, L501.9910, L503.6030, L503.6550, L506.0400, L3100.5125, L3100.5170 #### [facility] [address] [place], [place], [address] LUTEINIZING HORMONE Collected: 11/12/2017 Status: F Source: [place] 9:05 AM [facility] REPOSITORY Order Comment: Has Patient had X-rays with Contrast this admission? N TYPE CODE TESTS RESULT OUT OF RANGE REFERENCE UNITS LAB L3100.5170 mIU/mL Normal LH 2.6 Result Comment: NORMAL REFERENCE RANGES FEMALE FOLLICULAR 1.9 - 26.2 mIU/mL MID-CYCLE PEAK 22.8 - 76.1 mIU/mL LUTEAL 0.6 - 16.6 mIU/mL POST-MENOPAUSAL ON MHT 1.1 - 52.4 mIU/mL NOT ON MHT 8.6 - 61.8 mIU/mL MALE 1.2 - 10.6 mIU/mL NEW TEST METHOD AND REFERENCE RANGES FEBRUARY 18, 2012 Performed By: #### L500.4050, L500.4100, L501.19868, L501.9520, L501.9910, L503.6030, L503.6550, L506.0400, L3100.5125, L3100.5170 #### [facility] [address] [place], [address] TESTOSTERONE, SERUM TOTAL Collected: 11/12/2017 Status: F Source: [place] 9:05 AM [facility] REPOSITORY TYPE CODE TESTS RESULT OUT OF REFERENCE UNITS RANGE LAB L509.3000 ng/dL Testosterone Normal 237.49 Result Comment: NORMAL REFERENCE RANGES MALE AGE <50 123.06 - 813.86 ng/dL MALE AGE >50 89.98 - 780.10 ng/dL FEMALE PREMENOPAUSE AGE 21 - 60 9.01 - 47.94 ng/dL FEMALE POSTMENOPAUSE AGE 45 - 89 <7.00 - 45.62 ng/dL REFERENCE RANGE AND METHODOLOGY CHANGED 09/18/2017 Performed By: #### L509.3000, L509.6000 #### [facility] [address] [place], [place], [address] CORTISOL SERUM Collected: 11/12/2017 Status: F Source: [place] 9:05 AM [facility] REPOSITORY TYPE CODE TESTS RESULT OUT OF RANGE REFERENCE UNITS LAB L509.6000 3.09-22.40 ug/dL Normal CORTISOL 14.20 Result Comment: Adult (AM) 4.30 - 22.40 ug/dL Adult (PM) 3.09 - 16.66 ug/dL Performed By: #### L509.3000, L509.6000 #### [facility] [address] [place], [place], [address] SEX HORMONE-BINDING Collected: 11/12/2017 Status: F Source: [place] GLOBULIN 9:05 AM [facility] REPOSITORY Order Comment: Has Patient had X-rays with Contrast this admission? N Has Patient had Radioactive Injection for X-ray?: N TYPE CODE TESTS RESULT OUT OF RANGE REFERENCE UNITS LAB L3100.5060 16.5-55.9 nmol/L Normal SHBG 24.8 Result Comment: Performed at: - [facility] [id number] Health And Safety Coordinator: Chris Portillo PhD, Phone: [phone] Performed at: - [facility] [id number] Health And Safety Coordinator: Olivier Cerda MD, Phone: [phone] Performed By: #### L3100.5060, L3300.1000, L3300.1500, L3400.0200, L3400.4800 #### [facility] (refer to report for specific site) refer to report for address and phone number ADRENOCORTICOTROPIC HORMONE Collected: Status: F Source: QUE 11/12/2017 9:05 AM [facility] REPOSITORY Order Comment: Has Patient had X-rays with Contrast this admission? N Has Patient had Radioactive Injection for X-ray?: N TYPE CODE TESTS RESULT OUT OF RANGE REFERENCE UNITS LAB L3300.1000 7.2-63.3 pg/mL Normal ACTH 4440 18.7 Result Comment: ACTH reference interval for samples collected between 7 and 10 AM. Performed By: #### L3100.5060, L3300.1000, L3300.1500, L3400.0200, L3400.4800 #### [facility] (refer to report for specific site) refer to report for address and phone number DHEA SULFATE Collected: 11/12/2017 Status: F Source: [place] 9:05 AM [facility] REPOSITORY Order Comment: Has Patient had X-rays with Contrast this admission? N Has Patient had Radioactive Injection for X-ray?: N TYPE CODE TESTS RESULT OUT OF RANGE REFERENCE UNITS LAB L3300.1500 102.6-416.3 ug/dL Normal DHEA SULF 198.7 4020 Performed By: #### L3100.5060, L3300.1000, L3300.1500, L3400.0200, L3400.4800 #### [facility] (refer to report for specific site) refer to report for address and phone number ESTROGEN, TOTAL, SERUM Collected: 11/12/2017 Status: F Source: [place] 9:05 AM [facility] REPOSITORY Order Comment: Has Patient had X-rays with Contrast this admission? N Has Patient had Radioactive Injection for X-ray?: N TYPE CODE TESTS RESULT OUT OF RANGE REFERENCE UNITS LAB L3400.0200 40-115 pg/mL Normal ESTROGEN 4549 97 Performed By: #### L3100.5060, L3300.1000, L3300.1500, L3400.0200, L3400.4800 #### [facility] (refer to report for specific site) refer to report for address and phone number TESTOSTERONE FREE Collected: 11/12/2017 Status: F Source: QUE 9:05 AM [facility] REPOSITORY Order Comment: Has Patient had X-rays with Contrast this admission? N Has Patient had Radioactive Injection for X-ray?: N TYPE CODE TESTS RESULT OUT OF RANGE REFERENCE UNITS LAB L3400.4800 8.7-25.1 pg/mL Normal TEST FR 8.7 143173 Performed By: #### L3100.5060, L3300.1000, L3300.1500, L3400.0200, L3400.4800 #### [facility] (refer to report for specific site) refer to report for address and phone number CHEST PA/AP AND Observed: 11/11/2017 Status: F Source: [facility] LATERAL 3:20 PM [facility] REPOSITORY CHEST PA/AP & LATERAL Ordering Physician: Monika De Anda MD 11/11/2017 3:20 PM PA AND LATERAL CHEST: Clinical Statement: Cough for two months. Comparison: None. FINDINGS: The heart, hilar and mediastinal contours are within normal limits. The lungs are clear. No congestion, pleural fluid or pneumothorax. The bony thorax is unremarkable. IMPRESSION: No active disease within the chest. ---- Electronic Signature on File ---- Signed By: Luis Enrique Varela MD [email or web address] Dictated: 11/11/2017 5:24 PM Signed: 11/11/2017 5:25 PM Reported By: LUIS ENRIQUE VARELA M.D. Signed By: LUIS ENRIQUE VARELA M.D. MSC Observed: 11/11/2017 Status: UNK Source: [facility] 2:19 PM [facility] REPOSITORY DATE OF SERVICE: 11/11/2017 REASON FOR VISIT: Cough, sore throat. HISTORY OF PRESENT ILLNESS: This is a 37-year-old male who presented with coughing for the last two months. He feels some discomfort in the chest. No wheezing. No fever or chills. The cough is dry. He has not sought any medical attention so far. Now the cough is causing him to have a sore throat. No shortness of breath. Review of all other systems is normal. PAST MEDICAL HISTORY, FAMILY HISTORY, SOCIAL HISTORY: Reviewed. ALLERGIES: NKA. MEDICATIONS: None. 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 PHYSICAL EXAMINATION:General: The patient is awake, alert, not in distress, no dyspnea. Vital signs: Temperature 98.6, blood pressure 128/84, pulse 80, respirations 18, pulse oximetry 97%, pain score 2/10. HEENT: Unremarkable. Chest: Clear to auscultation. No crackles or wheezes or rhonchi. Heart: Regular rate and rhythm. Chest x-ray did not show any acute changes. ASSESSMENT: Acute bronchitis. PLAN: Clinical findings were discussed with the patient in detail. I explained to the patient that he might have a touch of bronchitis. The radiologist will give the final x-ray report. Because his cough has been going on for two months, I will empirically treat him with amoxicillin 875 mg twice a day for 10 days with no refills. He can take Mucinex and cough medicine, maintain hydration. If there is no improvement, he must follow up with his family doctor for further evaluation and care. The patient understands and agrees. His questions were answered to his satisfaction. Monika De Anda MD [id number] SSI File#: [id number] Verified/Reviewed by [facility] PATIENT NAME: NAPOLEON GONZALEZ Dr. Hart MEDICAL REC #: [id number] [place] [address] [facility] REPORT [facility] PHYSICIAN 04/29/[address] [facility] PATIENT NAME: NAPOLEON GONZALEZ Dr. Hart MEDICAL REC #: [id number] [place] [address] [facility] REPORT [facility] PHYSICIAN ALLERGIES ALLERGIES DATE TYPE / CODE NAME / CODE REACTION SEVERITY SOURCE 10/21/2018 Drug shellfish Anaphylaxis Unknown [place] Allergy/416 derived/[id number] [facility]ly [facility] [id number]([place] [address] ENCOUNTERS ENCOUNTERS ADMIT/DISCHARGE ACCOUNT ADMITTING ENCOUNTER LOCATION SOURCE NUMBER CLASS 10/21/2018/ [id number] Ambulatory BMSBuilding:B [place] 9 5 MS.A [facility] Repository 10/16/2018 [id number] Ambulatory [place] Que 4 [facility] ing:PT Repository 09/19/2018 [id number] Ambulatory Que [place] 7 [facility] ing:MTRAD Repository 07/23/2018 [id number] Ambulatory BMSBuilding:B [place] 6 MS.[facility] Repository 07/23/2018/ [id number] Ambulatory BMSBuilding:B Que 8 3 MS.[facility] Repository 07/23/2018 [id number] Ambulatory [place] 4 [facility] ing:LAB.FUTUR Repository E 07/21/2018 [id number] Ambulatory [place] Que 0 [facility] ing:HW Repository 07/21/2018/ [id number] Ambulatory BMSBuilding:B [place] 8 1 MS.[facility] Repository 12/30/2017/ [id number] Ambulatory BMSBuilding:B [place] 8 9 MS.NOW [facility] Repository 11/22/2017 [id number] Ambulatory [place] 5 [facility] ing:USHP Repository 11/12/2017 [id number] Ambulatory [place] Que 6 [facility] ing:SDC Repository 11/12/2017 [id number] Ambulatory [place] Que 5 [facility] ing:MFPLAB Repository 11/11/2017 [id number] Ambulatory [facility] 3 [facility] g:PadminiMSC Repository PAYERS PAYERS ENCOUNTER GUARANTOR PAYER SUBSCRIBER SOURCE 10/21/2018 NAPOLEON Amaya Primary Insurance:MED NAPOLEON Grey [id number] MUTUAL TPAPolicy HEWITTDOB: [facility] [address] Number: [id number] [id number] Repository [address]Sld: [phone]) Date:1482-85-02JU [phone] () [id number], [place] [address]UH: CHECK WEBSITE 10/21/2018 Secondary NOT GIVENUNK [place] Insurance:SELF PAY [facility] Number: Effective Repository Date:2018-10-17 10/16/2018 NAPOLEON Amaya Primary Insurance:MED NAPOLEON Grey [id number] MUTUAL TPAPolicy HEWITTDOB: [facility] [address] Number: [id number], [place] [id number] Repository [address]Vkt: ([phone]) Date:[id number] [phone] () [address]KQ[place], [place] [address]MN: CHECK WEBSITE 10/16/2018 Secondary NOT GIVENUNK [place] Insurance:SELF PAY [facility] Number: Effective Repository Date:2018-10-15 09/19/2018 NAPOLEON Amaya Primary Insurance:MED NAPOLEON Grey [id number] MUTUAL TPAPolicy HEWITTDOB: [facility] [address] Number: [id number], [place] [id number] Repository [address]Uym: ([phone]) Date:4873-56-18[phone] (HP) [address]KRXZXGQ, [place] [address]MX: CHECK WEBSITE 09/19/2018 Secondary NOT GIVENUNK [place] Insurance:SELF PAY [facility] Number: Effective Repository Date:2018-09-19 07/23/2018 NAPOLEON J Primary Insurance:MED NAPOLEON Amaya Que [id number] MUTUAL TPAPolicy HEWITTDOB: [facility] [address] Number: [id number], [place] [id number] Repository 98992Kgg: (330) Date:4684-77-67UR [phone] (HP) [address]AKVJTGDPL, [place] [address]YZ: CHECK WEBSITE 07/23/2018 Secondary NOT GIVENUNK [place] Insurance:SELF PAY [facility] Number: Effective Repository Date:2018-07-23 07/23/2018 NAPOLEON Jose Luis Primary NOT GIVENUNK Que [id number] Insurance:SELF PAY [place] Number: Effective Repository [phone]: (330) Date:2018-07-23 [phone] (HP) 07/23/2018 NAPOLEON J Primary Insurance:MED NAPOLEON J Que [id number] MUTUAL TPAPolicy HEWITTDOB: [facility] Number: [id number], [place] [id number] Repository 96[address]Xah: (330) Date:1742-48-13BA [phone] () 44070YGKCEGVTE, [place] [address]QR: CHECK WEBSITE 07/23/2018 Secondary NOT GIVENUNK Que Insurance:SELF PAY [facility] Number: Effective Repository Date:2018-07-23 07/21/2018 NAPOLEON J Primary NOT GIVENUNK [place] [id number] Insurance:SELF PAY [place] Number: Effective Repository [phone]: (330) Date:2018-07-10 [phone] (HP) 07/21/2018 NAPOLEON J Primary NOT GIVENUNK [place] [id number] Insurance:SELF PAY [place] Number: Effective Repository [id number]: (330) Date:2018-07-21 [phone] (HP) 12/30/2017 NAPOLEON Amaya Primary NOT GIVENUNK Que [id number] Insurance:SELF PAY [place] Number: Effective Repository [phone]: (330) Date:2017-12-17 [phone] (HP) 11/22/2017 NAPOLEON Amaya Primary Insurance:MED NAPOLEON Jose Luis Que [id number] MUTUAL TPAPolicy HEWITTDOB: [facility] [address] Number: [id number], [place] [id number] Repository [address]Wma: (330) Date:5736-15-65GL [phone] (HP) [address]PSMRXLYFI, [place] [address]MP: CHECK WEBSITE 11/22/2017 Secondary NOT GIVENUNK [place] Insurance:SELF PAY [facility] Number: Effective Repository Date:2017-11-14 11/12/2017 NAPOLEON Amaya Primary Insurance:MED NAPOLEON Amaya [place] [id number] MUTUAL TPAPolicy HEWITTDOB: [facility] Number: [id number], [place] [id number] Repository 10[address]Iyl: (330) Date:7067-46-68EI [phone] (HP) [address]HKNNANJSN, [place] [address]PM: CHECK WEBSITE 11/12/2017 Secondary NOT GIVENUNK [place] Insurance:SELF PAY [facility] Number: Effective Repository Date:2017-10-15 11/12/2017 NAPOLEON Amaya Primary NAPOLEON Amaya [place] [id number] Insurance:MUTUAL HEWITTDOB: [facility] [id number] EHPPolicy Number: Repository [id number]: (330) [id number] [phone] (HP) Date:4834-69-65FP [address] [address]QPATXHJAV, [place] [address]ZT: 11/12/2017 Secondary NOT GIVENUNK [place] Insurance:SELF PAY [facility] Number: Effective Repository Date:2017-11-12 11/11/2017 NAPOLEON [facility] NAPOLEON [id number] Insurance:[facility] PPOPolicy Number: Repository timmy PIZARRO [id number] [phone]: [phone]) Date:1577-25-16XD [phone] () [id number] [place] [id number]:
--- NOTE | 2019-05-06 13:43 | HP.PTDCNRP_ITS ---
HP - Discharge Summary (1) - Patient Information NAPOLEON GONZALEZ was seen in my office for initial evaluation on 10/16/18. The following Plan of Care was established for this patient: Initial Frequency: 2x /Week Initial Duration: 4 Weeks - Anticipated Interventions Patient/Client Instruction: Educate patient on: Condition, Plan of Care, Risk Factors, Benefits of Fitness Program For the Purpose of:: To foster healthy habits, To improve decision making, To facilitate caregiver knowledge, To improve self management, To prevent re- injury, To improve ability to perform tasks related to life management, To improve tolerance to ADL's Therapeutic Exercise to Include: Strength training, Power training, Endurance training, Balance training, Postural training, Flexibilty training, Gait and lo comotor training, Passive ROM, Active ROM For the Purpose of:: To decrease pain, To decrease swelling/inflammation, To increase ROM, To improve nutrient delivery to tissue, To increase oxygenation perfusion, To improve muscle performance and motor function, To improve health of tissue, To decrease soft tissue restriction, To increase flexibility/ROM, To improve endurance, To improve balance TENS: Yes IF ES: Yes Cryotherapy (ice pack, ice massage): Yes Ultrasound (thermal/non thermal): Yes For the Purpose of:: To decrease pain, To decrease swelling/inflammation, To increase ROM This patient was last seen in our office 10/16/18. Pertinent comments regarding their Physical therapy will appear below: PT. was seen for his initial evaluation, but nothing afterwards. Pt. has not been seen since and will be DC from PT at this point in time. At this point I will be discontinuing this patient from physical therapy. I would be happy to see this patient again in the future if found appropriate by the physician. Thank you! Antonio Martinez, ILEANAT
== END 2018-10-16 19:00 | disposition home or self-care (01) ==
LOC: PT 13:27
PROVIDERS: Family Provider Family Medicine; PCP Family Medicine; Visit Provider Family Medicine
DX: M25.562 Pain in left knee (principal)
CPT/HCPCS: 97110; 97161

== ENCOUNTER → 2018-11-01 07:27 | Outpatient (CLI) | payer OTHER, SELFPAY ==
[2018-10-21 09:28] VITALS: BMI 31.6
--- NOTE | 2018-11-01 07:29 | MRI_ITS ---
STUDY: MRI LEFT KNEE REASON FOR EXAM: Male, 38 years old. 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 COMPARISON: None. FINDINGS: Normal medial meniscus. Normal hyaline cartilage of the medial femorotibial compartment. Normal medial femoral condyle and tibial plateau. Normal medial collateral ligamentous complex (MCL). Normal distal semimembranosus, gracilis and semitendinosus tendons. Normal lateral meniscus. Normal hyaline cartilage of the lateral femorotibial compartment. Normal lateral femoral condyle and tibial plateau. Normal proximal tibiofibular articulation. Normal lateral collateral (fibular) ligament. Mild interstitial edema in the popliteus muscle is consistent with low-grade strain. Normal biceps femoris tendon. There is mild fluid within the anterior cruciate ligament, suspicious for a low-grade sprain. This is best demonstrated on coronal and axial T2 weighted sequences. Normal posterior cruciate ligament (PCL). Normal congruent patellofemoral articulation. There is fissuring of the medial patellar cartilage. There is moderate edema in the anterolateral femoral trochlear cartilage consistent with contusion. There is no evidence of cartilage flap tear. 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 Normal medial and lateral patellar retinaculum. Normal quadriceps tendon. Normal patellar tendon. Normal Hoffa's fat pad. Small joint effusion. The soft tissues are unremarkable. The otherwise visualized osseous structures are unremarkable. MRI/Lower Ext Joint Only (Routine) IMPRESSION: 1. Low-grade ACL sprain. 2. Anterior femoral cartilage contusion. 3. Medial femoral cartilage fissuring. 4. Anterior femoral bone contusion. 5. Popliteus muscle strain. 6. Small joint effusion. Electronically Signed: Elvia Raymond MD at 20:51 EST Tel , Service support ,
== END ==
PROVIDERS: Family Provider Family Medicine; PCP Family Medicine; Referring Provider Family Medicine; Visit Provider Family Medicine
DX: M25.562 Pain in left knee (principal)
CPT/HCPCS: 73721

== ENCOUNTER → 2019-01-22 | Outpatient (CLI) | payer OTHER, SELFPAY ==
[2019-01-05 10:00] VITALS: BMI 31.6
== END | disposition home or self-care (01) ==
LOC: LAB.FUTURE 07:03
PROVIDERS: Family Provider Family Medicine; PCP Family Medicine; Referring Provider Internal Medicine Endocrinology, Diabetes & Metabolism; Visit Provider Internal Medicine Endocrinology, Diabetes & Metabolism
DX: E29.1 Testicular hypofunction (principal)

== ENCOUNTER → 2019-03-19 | Outpatient (CLI) | payer OTHER, SELFPAY ==
[2019-01-05 10:00] VITALS: BMI 31.6
[2019-03-19 14:36] LABS: Absolute Neutrophil Count 2.7 X10^3/uL (2.0-7.7); Basophil# 0.01 X10^3/uL; Basophil% 0.2 % (0-1); Eosinophil# 0.07 X10^3/uL; Eosinophils% 1.5 % (0-5); Hematocrit 48.8 % (40-54); Hemoglobin 17.4 g/dl (13.0-16.5); Lymphocyte % 29.6 % (19-41); Mean Corp Hgb Conc 35.7 g/gl (32-36); Mean Corpuscular Hgb 31.4 pg (27.0-32.0); Mean Corpuscular Volume 87.9 fL (80-94); Mean Platelet Vol. 11.8 fl (6.2-12.0); Monocyte# 0.51 X10^3/uL; Monocyte% 10.8 % (0-10); Neutrophil # 2.73 X10^3/uL (2.7-7.7); Neutrophil % 57.7 % (47-70); Platelet Count 152 K/mm3 (150-450); RBC Distribution Width CV 12.3 % (11.6-14.6); RBC Distribution Width SD 39.3 fl (35.1-43.9); Red Blood Count 5.55 M/mm3 (4.6-6.2); White Blood Count 4.7 K/mm3 (4.4-11.0)
[2019-03-19 14:38] LABS: POSITIVE COUNT NO; POSITIVE DIFFERENTIAL NO; POSITIVE MORPHOLOGY NO
[2019-03-19 14:49] LABS: ALB/GLOB Ratio 1.3 RATIO (0.9-2.4); AST(SGOT) 38 U/L (15-37); Alanine Aminotransfer ALT/SGPT 72 U/L (16-61); Albumin, Serum 4.1 g/dL (3.2-5.0); Alkaline Phosphatase 82 U/L (45-117); Anion Gap 5 (5-15); BUN 14 mg/dL (7-18); BUN/Creat Ratio 12.6 RATIO (10-20); Calcium,Total 9.3 mg/dL (8.5-10.1); Chloride 101 mmol/L (98-107); Cholesterol 161 mg/dL (200); Creatinine, Serum 1.11 mg/dL (0.70-1.30); EST Glomerular Filtration Rate 78 mL/min (>60); Est Glom Filt Rate - Afr Amer 95 mL/min (>60); Estradiol 21.8 pg/mL; Globulin 3.2 g/dL (2.2-4.2); Glucose 74 mg/dL (74-106); High Density Lipoprotein 44 mg/dL; Potassium 3.6 mmol/L (3.5-5.1); Protein, Total 7.3 g/dL (6.4-8.2); Sodium Level 135 mmol/L (136-145); Triglycerides 47 mg/dL; Very Low Density Lipoprotein 9 mg/dL (5-40)
== END | disposition home or self-care (01) ==
LOC: MTLAB 11:25
PROVIDERS: Family Provider Family Medicine; PCP Family Medicine; Referring Provider Internal Medicine Endocrinology, Diabetes & Metabolism; Visit Provider Internal Medicine Endocrinology, Diabetes & Metabolism
DX: E29.1 Testicular hypofunction (principal)
CPT/HCPCS: 36415; 80053; 80061; 82670; 84403; 85025

== ENCOUNTER → 2019-06-17 | Outpatient (CLI) | payer OTHER, SELFPAY ==
[2019-01-05 10:00] VITALS: BMI 31.6
[2019-06-17 10:16] LABS: Absolute Lymphocyte Count 1.29 X10^3/uL (0.83-4.51); Absolute Neutrophil Count 2.1 X10^3/uL (2.0-7.7); Basophil# 0.02 X10^3/uL; Basophil% 0.5 % (0-1); Eosinophil# 0.12 X10^3/uL; Hematocrit 44.8 % (40-54); Hemoglobin 15.3 g/dL (13.0-16.5); Lymphocyte # 1.29 X10^3/ul (4.0); Lymphocyte % 32.1 % (19-41); Mean Corp Hgb Conc 34.2 g/dL (32-36); Mean Corpuscular Hgb 30.8 pg (27.0-32.0); Mean Corpuscular Volume 90.1 fL (80-94); Mean Platelet Vol. 11.1 fl (6.2-12.0); Monocyte# 0.46 X10^3/uL; Monocyte% 11.4 % (0-10); NRBC Flagged by Analyzer 0 % (0-5); Neutrophil # 2.12 X10^3/uL (2.7-7.7); Neutrophil % 52.8 % (47-70); Platelet Count 144 K/mm3 (150-450); RBC Distribution Width CV 11.9 % (11.6-14.6); RBC Distribution Width SD 39.2 fl (35.1-43.9); Red Blood Count 4.97 M/mm3 (4.6-6.2)
[2019-06-17 10:41] LABS: ALB/GLOB Ratio 1.2 RATIO (0.9-2.4); AST(SGOT) 24 U/L (15-37); Alanine Aminotransfer ALT/SGPT 40 U/L (16-61); Albumin, Serum 3.6 g/dL (3.2-5.0); Alkaline Phosphatase 80 U/L (45-117); Anion Gap 3 (5-15); BUN 19 mg/dL (7-18); BUN/Creat Ratio 16.5 RATIO (10-20); Calcium,Total 8.6 mg/dL (8.5-10.1); Chloride 106 mmol/L (98-107); Creatinine, Serum 1.15 mg/dL (0.70-1.30); EST Glomerular Filtration Rate 75 mL/min (>60); Est Glom Filt Rate - Afr Amer 91 mL/min (>60); Estradiol 20.9 pg/mL; Glucose 80 mg/dL (74-106); Magnesium 2.1 mg/dL (1.6-2.6); Potassium 3.8 mmol/L (3.5-5.1); Protein, Total 6.6 g/dL (6.4-8.2); Sodium Level 138 mmol/L (136-145); Thyroid Stim Hormone (TSH) 1.72 uIU/mL (0.358-3.74)
== END | disposition home or self-care (01) ==
LOC: LAB.FUTURE 07:05
PROVIDERS: Family Provider Family Medicine; PCP Family Medicine; Referring Provider Internal Medicine Endocrinology, Diabetes & Metabolism; Visit Provider Internal Medicine Endocrinology, Diabetes & Metabolism
DX: I49.9 Cardiac arrhythmia, unspecified (principal); E29.1 Testicular hypofunction
CPT/HCPCS: 36415; 80053; 82670; 83735; 84403; 84443; 85025

== ENCOUNTER → 2019-09-03 09:19 | Outpatient (CLI) | payer OTHER, SELFPAY ==
[2019-07-22 15:08] VITALS: BMI 31.6
[2019-09-03 10:28] LABS: Absolute Lymphocyte Count 1.35 X10^3/uL (0.83-4.51); Absolute Neutrophil Count 2.1 X10^3/uL (2.0-7.7); Basophil# 0.02 X10^3/uL; Basophil% 0.5 % (0-1); Eosinophil# 0.09 X10^3/uL; Eosinophils% 2.2 % (0-5); Hematocrit 47.1 % (40-54); Hemoglobin 16.4 g/dL (13.0-16.5); Lymphocyte # 1.35 X10^3/ul (4.0); Lymphocyte % 32.9 % (19-41); Mean Corp Hgb Conc 34.8 g/dL (32-36); Mean Corpuscular Hgb 31.2 pg (27.0-32.0); Mean Corpuscular Volume 89.7 fL (80-94); Mean Platelet Vol. 11.1 fl (6.2-12.0); Monocyte# 0.48 X10^3/uL; Monocyte% 11.7 % (0-10); NRBC Flagged by Analyzer 0 % (0-5); Neutrophil # 2.14 X10^3/uL (2.7-7.7); Neutrophil % 52.2 % (47-70); Platelet Count 153 K/mm3 (150-450); RBC Distribution Width CV 11.5 % (11.6-14.6); RBC Distribution Width SD 37.7 fl (35.1-43.9); Red Blood Count 5.25 M/mm3 (4.6-6.2); White Blood Count 4.1 K/mm3 (4.4-11.0)
== END ==
LOC: LAB.FUTURE 09:23 → MTLAB 09:32
PROVIDERS: Family Provider Family Medicine; PCP Family Medicine; Referring Provider Internal Medicine Endocrinology, Diabetes & Metabolism; Visit Provider Internal Medicine Endocrinology, Diabetes & Metabolism
DX: E29.1 Testicular hypofunction (principal)
CPT/HCPCS: 36415; 84403; 85025

== ENCOUNTER → 2019-09-11 09:20 | Outpatient (CLI) | payer OTHER, SELFPAY ==
[2019-07-22 15:08] VITALS: BMI 31.6
[2019-09-11 12:37] LABS: hCG Titer Quant., Serum < 1 mIU/mL (0-1 male)
[2019-09-11 13:39] LABS: Estradiol 22.5 pg/mL; Follicle Stimulating Hormone 1.4 mIU/mL; Luteinizing Hormone 1.8 mIU/mL; Prolactin 5.4 ng/mL; T4 Free Direct 1.02 ng/dL (0.76-1.46); Thyroid Stim Hormone (TSH) 1.33 uIU/mL (0.358-3.74)
[2019-09-16 11:27] LABS: DHEA Sulfate 104.7 ug/dL (102.6-416.3); Testosterone Free 11.1 pg/mL (6.8-21.5)
[2019-09-16 11:36] LABS: Adrenocorticotropic Hormone 27.3 pg/mL (7.2-63.3); Androstenedione 48 ng/dL (27-152); Sex Hormone-binding Globulin 26.7 nmol/L (16.5-55.9)
[2019-09-18 16:40] LABS: 17-Hydroxyprogesterone 83 ng/dL (27-199)
== END ==
PROVIDERS: Family Provider Family Medicine; PCP Family Medicine; Referring Provider Surgery; Visit Provider Surgery
DX: N62 Hypertrophy of breast (principal); N63.10 Unspecified lump in the right breast, unspecified quadrant; N63.20 Unspecified lump in the left breast, unspecified quadrant; N64.4 Mastodynia; R79.89 Other specified abnormal findings of blood chemistry
CPT/HCPCS: 36415; 82024; 82157; 82627; 82670; 83001; 83002; 83498; 84146; 84270; 84402; 84439; 84443; 84702; 82626

== ENCOUNTER → 2019-11-17 07:56 | Outpatient (CLI) | payer OTHER, SELFPAY ==
[2019-11-09 10:43] VITALS: BMI 31.6
--- NOTE | 2019-11-17 07:58 | MRI_ITS ---
STUDY: BILATERAL BREAST MR WITHOUT AND WITH CONTRAST REASON FOR EXAM: Male, 39 years old. Bilateral breast pain and bilateral breast cysts. Follow-up to mammogram. TECHNIQUE: Multi-sequence multi-echo imaging of both breasts was performed with a dedicated breast coil. T1-weighted and T2-weighted images were performed before the administration of contrast. T1-weighted images were also performed after the administration of 20ml Dotarem IV without complications. COMPARISON: Bilateral mammogram dated April 08, 2019 and right breast ultrasound dated March 17, 2019 FINDINGS: RIGHT BREAST:. The breast tissue is fatty with no background enhancement. There are no abnormal enhancing masses or areas of non-mass enhancement in the right breast. LEFT BREAST: The breast tissue is fatty with no background enhancement. There are no abnormal enhancing masses or areas of non-mass enhancement in the left breast. There are no enlarged or abnormal lymph nodes. There is no abnormality in the visualized regions of the chest or liver. MRI/Breast Bilateral W/O and W IMPRESSION: No abnormality on the bilateral breast MRI with contrast. Clinical follow-up recommended. CATEGORY: BIRADS Category 1: Negative. A letter regarding these results will be sent to the patient by the facility within 30 days. Electronically Signed: Grant Cordero MD at 11:41 EST , Service support ,
== END ==
PROVIDERS: PCP Family Medicine; Referring Provider Surgery; Visit Provider Surgery
DX: N64.4 Mastodynia (principal); N63.10 Unspecified lump in the right breast, unspecified quadrant; N63.20 Unspecified lump in the left breast, unspecified quadrant; N62 Hypertrophy of breast; R79.89 Other specified abnormal findings of blood chemistry
CPT/HCPCS: 77049; A9575; A4216; C8908

== ENCOUNTER 2020-07-08 06:03 | Day surgery (SDC) | payer OTHER, SELFPAY ==
[2020-03-09 09:14] VITALS: BMI 31.6
--- NOTE | 2020-07-07 21:26 | HP.PCM_ITS ---
History and Physical Date of Admission: 07/08/20 HISTORY OF PRESENT ILLNESS 39 year old man presents with enlarging painful bilateral breast masses that worsened after stopping Testosterone last May. His Testosterone was low and was given Testosterone cream. This led to increasing pain in his breasts. The pain was severe enough that he stopped the Testosterone. Since then his breasts enlarged and the masses enlarged. He denies trauma to the breasts. He denies nipple discharge. 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 Denies daily alcohol and marijuana usage. He had an Ultrasound right breast on 03/17/19. It showed 2 4 mm cysts in the retroareolar area. This was followed up with a bilateral mammogram on 04/08/19. It showed a 3 cm mass in the retroareolar area right breast. The left breast showed generalized gynecomastia. He had an MRI done on 11/17/19. It showed no abnormal enhancing masses or areas of non-mass enhancement in the right breast and the left breast. On 09/03/19, he had an Estradiol and Testosterone level drawn. The Estradiol was normal at 22.5. The Testosterone was normal at 469.58. He did have a painful left breast mass excised back in 2012. He presents at this time for further evaluation and treatment. PAST MEDICAL HISTORY Angiolipoma Dysesthesia Lipoma Localized superficial swelling, mass, or lump Renal insufficiency PAST SURGICAL HISTORY H/O excision of mass ALLERGIES shellfish MEDICATIONS No Known Home Medications FAMILY HISTORY Father - High cholesterol SOCIAL HISTORY Smoking Status: Never smoker alcohol intake: current alcohol intake frequency: holidays/special occasions only substance use type: does not use REVIEW OF SYSTEMS General - Denies fever, fatigue, and weight loss. Eyes - Denies cataracts and glaucoma. ENT - Denies nasal congestion and sore throat. Endocrine - Denies excessive thirst and urination. Has bilateral painful breast masses. Has low Testosterone. Had painful left breast mass excised in 2013. Skin - Denies suspicious lesions and skin cancer. Musculoskeletal - Denies joint pain, joint stiffness, weakness of muscles and joints, back pain, and arthritis. Neuro - Denies headaches. Cardiovascular - Denies chest pain, fatigue, and shortness of breath with exertion. Psych - Denies anxiety and depression. Respiratory - Denies chronic cough and shortness of breath. Gastrointestinal - Denies nausea, vomiting, diarrhea, and constipation. Hematologic - Denies abnormal bruising and bleeding. Genitourinary - Denies hematuria and urinary frequency. PHYSICAL EXAMINATION General - Alert and Oriented. HEENT - PERRL. EOMI. Throat is clear. Neck - Supple and nontender. No cervical adenopathy. Breasts - There is generalized gynecomastia, more so on the right. Stage I. No breast ptosis. Bilateral breast tenderness, worse on the right. On the right breast in the retroareolar area is a soft tissue mass that measures 5 cm which has increased from 4 cm last June. It is mobile. No skin retraction or skin dimpling. It is tender to palpation. On the left breast in the retroareolar area is a soft tissue mass that measures 3 cm which has increased from 2.5 cm last June. It is mobile. No skin retraction or skin dimpling. It is tender to palpation. No axillary adenopathy. Lungs - Clear to auscultation. Heart - Regular rate and rhythm. Abdomen - Soft and nondistended. Genitalia - No testicular masses noted. Extremities - FROM. No axillary adenopathy. Radial pulses are palpable. Neuro - CN II-XII grossly intact. Psych - Normal mood and affect. ASSESSMENT 1. 5 cm painful right breast mass in retroareolar area. 2. 3 cm painful left breast mass in retroareolar area. PLAN MRI reviewed. It showed no abnormal enhancing masses or areas of non-mass enhancement in the right breast and the left breast. The breast masses are enlarging in size since last June. The tenderness is increasing. Recommend excision of the painful soft tissue masses bilateral breasts. If the patient is interested in additional surgery for his gynecomastia in the future, then he would be financially responsible for that. He voices understanding. Surgery would be done under general anesthesia on an outpatient basis. Drains would be necessary for 10-14 days. He would be maintained on antibiotics until the drains are removed. Tissue that is removed would be sent to Pathology for analysis to rule out carcinoma. Patient was informed of the risks and complications of the procedure including alternatives to surgery. These were discussed with the patient personally. Patient voices understanding and wishes to proceed with surgery. We discussed the current risks associated with COVID-19. While it is understood that there is a community spread of COVID-19, the risk of mahesh COVID-19 while at [facility] ([facility]) is very low; however, the risk cannot be completely mitigated because of the community spread of the disease. We discussed in detail the risk of exposure to and/or potential harm posed by the COVID-19 virus with having a surgery/procedure at this time versus the risk of delaying the surgery/procedure. It is not possible to know either the risk of delaying the surgery or procedure or chance of getting an infection with perfect accuracy, but a joint decision was made to proceed at this time with the scheduled surgery/procedure as indicated on the consent form. Patient was notified that we will need to comply with any screening or testing [facility] wishes to perform or that surgery may be delayed for any positive results. Discussed with the patient that I was tested for COVID-19 on 03/31/20 which was negative and on 04/14/20 which was negative and on 04/28/20 which was negative and on 05/12/20 which was negative and on 05/26/20 which was negative and on 06/16/20 which was negative. My testing regimen at this time is to be COVID-19 tested every 2 weeks or so. I was recently tested on 07/07/20 and that test is pending. Procedure Criteria Procedure Type: Elective COVID Risk Discussion: The surgeon/proceduralist and patient have discussed in detail the risk of exposure to and/or potential harm posed by the COVID-19 virus with having a surgery/procedure at this time versus the risk of delaying the surgery/procedure. It is not possible to know either the risk of delaying the surgery or procedure or chance of getting an infection with perfect accuracy, but a joint decision was made between the patient and the surgeon/proceduralist to proceed at this time with the scheduled surgery/procedure as indicated on the consent form.
[2020-07-08] VITALS (8 sets, daily range): BP systolic 120–134; BP diastolic 69–88; PULSE 66–89; RESP 16; TEMP 36.4–36.9; O2SAT 94–100; BMI 28.8
--- NOTE | 2020-07-08 | BRBX_PTH ---
PATIENT: NAPOLEON GONZALEZ LOC: [facility] [place] U#:[id number] AGE/SX: 39/M ROOM: RE07/08/[address]: Dr. Fitz Worley MD : 1980 BED: DIS: 07/08/2020 SPEC #: [id number] RECD: 07/08/20 10:43 STATUS: MARISSA REDerrick #: [id number] SAMI: 07/08/20 00:[address]: Fitz Worley DEPT: SURGICAL PATHOLOGY RECD BY: Ferdinand Freitas ENTERED: 07/08/20 10:44 SP TYPE: BREAST BX OTHR DR: Dr. Elton Ricardo MD Tissues: A - Left breast, NOS B - Right breast, NOS Procedures: Surgery Specimen Level IV HEADER OPERATION: Excision breast mass PRE-OP DIAGNOSIS: 5 cm painful right breast mass in retroareolar area, 3 cm painful left breast mass in retroareolar area TISSUE SUBMITTED: A - Left breast mass in retroareolar area, B - Right breast mass in retroareolar area MICROSCOPIC DIAGNOSIS A. Left breast mass, retroareolar region, lumpectomy: Gynecomastia. B. Right breast mass, retroareolar region, lumpectomy: Gynecomastia. AM:lynne 07/11/20 MICROSCOPIC DESCRIPTION Slides are reviewed. GROSS DESCRIPTION A - Received in fixative is one container labeled with the patient's name and designated left breast mass retroareolar area. The specimen consists of multiple irregular pieces of rodriguez-yellow fibroadipose tissue that in aggregate measure 6.5 x 4 x 1 cm. Sections do not reveal any obvious mass lesion and reveal rodriguez-yellow adipose cut surfaces mixed with rodriguez-white fibrous areas. Emery Wheel Worker sections are submitted in six cassettes. B - Received in fixative is one container labeled with the patient's name and designated right breast mass retroareolar area. The specimen consists of multiple variably pieces of rodriguez-yellow fibroadipose tissue that in aggregate measure 9 x 8 x 2 cm. Sections do not reveal any obvious mass lesion and reveal rodriguez-yellow adipose cut surfaces mixed with rodriguez-white fibrous areas. Emery Wheel Worker sections are submitted in six cassettes. / EDOUARD:lynne 07/08/20 TC:5 CPT: 99182 x2
[2020-07-08] MEDS: Lactated Ringers 1,000 ML 100 ML IV (06:50)
[2020-07-08] MEDS: Cefazolin 2 GM in 0.9% Normal Saline 100 ML IV (07:30)
--- NOTE | 2020-07-08 09:01 | OP.PCM_ITS ---
Report of Operation Date of Procedure: 07/08/20 Pre-Operative Diagnosis: 1. 5 cm painful right breast mass in retroareolar area. 2. 3 cm painful left breast mass in retroareolar area. Post-Operative Diagnosis: Same. Surgery/Procedure Performed:: 1. Excision 5 cm painful right breast mass in retroareolar area. 2. Excision 3 cm painful left breast mass in retroareolar area. Description of Surgical Findings:: 39 year old man presents with enlarging painful bilateral breast masses that worsened after stopping Testosterone last May. His Testosterone was low and was given Testosterone cream. This led to increasing pain in his breasts. The pain was severe enough that he stopped the Testosterone. Since then his breasts enlarged and the masses enlarged. He denies trauma to the breasts. He denies nipple discharge. 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 Denies daily alcohol and marijuana usage. He had an Ultrasound right breast on 03/17/19. It showed 2 4 mm cysts in the retroareolar area. This was followed up with a bilateral mammogram on 04/08/19. It showed a 3 cm mass in the retroareolar area right breast. The left breast showed generalized gynecomastia. He had an MRI done on 11/17/19. It showed no abnormal enhancing masses or areas of non-mass enhancement in the right breast and the left breast. On 09/03/19, he had an Estradiol and Testosterone level drawn. The Estradiol was normal at 22.5. The Testosterone was normal at 469.58. He did have a painful left breast mass excised back in 2012. Patient was informed of the risks and complications of the procedure including alternatives to surgery. These were discussed with the patient personally. Patient voices understanding and wishes to proceed. Some of the risks and complications were included in a form from the [employer]. I used Mendez absorbable hemostat. Reference Number - [id number], (I used 2 vials, one in each breast). Lot Number - [id number]. Expiration - February 24, 2025. survey superintendent: Jenaro Pacheco. Type of Anesthesia:: General Specimen's removed: 1. Painful right breast mass in retroareolar area to Pathology. 2. Painful left breast mass in retroareolar area to Pathology. Drains: Carlos x2 (one in each breast). Estimated Blood Loss (mL): 25 ml. Description of Procedure: Patient was taken to OR in supine position and was placed under general anesthesia. The breasts were prepped and draped in the usual fashion. SCD's were placed for DVT prophylaxis. Perioperative antibiotics were given intravenously. For the procedure, I wore an N95 mask and wore proper eyewear protection. Using xylocaine with epinephrine, the breasts were infiltrated in the periareolar area. After waiting 5 minutes for the anesthetic to take effect, I made inferior periareolar incisions first on the left and then on the right into the subcutaneous tissue until the fibrous mass was seen. I dissected the mass down to the chest wall muscle. The masses were adherent to the chest wall, more so on the right. Hemostasis was obtained with electrocautery. Initially I left some breast tissue underneath the nipple to maintain vascularity and to minimize indentation of the nipple postoperatively. Initially good contour was noted after excision of these painful breast masses. However, after removing the masses in both breasts, it was noted there were firm masses more superficial to the nipple. Greenish drainage was seen when they were excised. No pus or evidence of infection noted. When I saw that, I went back to the left breast and excised smaller firm masses that were still present more superficial to the nipple. I excised them without any drainage noted. With the patient's painful symptomatology, I didn't want to leave the painful masses, close to the nipple, behind if it were to lead to persistent pain po stoperatively. After excision of the masses, they were sent to Pathology for analysis to rule out carcinoma. The breast pockets were large after the excision painful masses, so a size 15 Carlos drain was placed in each breast through separate stab incisions laterally and secured to the skin with 3-0 Nylon suture. The wounds were irrigated with Irrisept 0.05% Chlorhexidine solution which was followed by saline irrigation. Hemostasis was obtained with electrocautery. I then sprayed Mendez absorbable hemostat into the breast pockets to minimize seroma formation postoperatively. I then closed the inferior periareolar incisions in multiple layers with 3-0 Vicryl interrupted sutures for the deep subcutaneous tissue underneath the nipple. The deep dermis and subcutaneous tissue was approximated with 3-0 Monocryl interrupted sutures. The skin was approximated with 4-0 Prolene simple interrupted sutures and followed by Histoacryl skin tissue adhesive. Kerlix gauze was applied to the breasts followed by compression ever wrap. Patient tolerated the procedure well and was sent to PACU in satisfactory condition. Patient will be sent home on antibiotics and pain medication. He will keep his head elevated during the initial postoperative period and be on a lifting restriction. Patient will followup in a week for a wound check and for discussion of the pathology report and for removal of the sutures. Grafts/Implants Used: Mendez. - Complications None. - Admit VTE Documentation VTE Present on Admission: No VTE Mechan Device Prophylaxis: SCD's VTE Pharm Prophylaxis ordered?: No Surgery Charges CPT - 28589 ICD-10 - N63.10, N64.4 83505 N63.20, N64.4
--- NOTE | 2020-07-08 09:15 | PCM.DC ---
You will use the following diet at home:: No restrictions Discharge Activity: May not drive while taking narcotic pain medications., May Not Shower - until the drains are removed., - - keep head elevated. no heavy lifting. Return to work on:: 08/01/20 - tentative. May shower in (days): 14 - after the drains are removed. May resume sexual activity in: No Restrictions Weight Bearing Status: Weight bearing as tolerated Lifting Restrictions: 20 lbs. Keep extremity elevated above heart level: - - elevate head. Call your doctor if your incision/area has: Continuous Slow Oozing, Sudden Increased Bleeding, Increased Pain/ Swelling, Increased Redness, Foul Smelling Discharge, Swelling at the incision site Call your doctor if you observe: Fever of 101 or Higher, Coldness, Increased Pain, Shortness of breath, Chest pain, Calf discomfort, Uncontrolled pain Suture Line Care: - - dry dressings daily followed by compression ever after the operative dressing is removed. Change Dressing in (Days):: 2 - dry dressings daily followed by compression ever after the operative dressing is removed. Cleanse incision/area with: - - may get incisions wet in the shower after the drains are removed. Drain: Suction - veronique drain x2 to bulb suction. Allergies/Adverse Reactions: Allergies shellfish derived Allergy (Verified 06/30/20 09:17) Anaphylaxis Medications to take at Discharge Cefadroxil [Duricef] 500 mg PO BID #30 cap 07/08/20 Diazepam [Valium] 5 mg PO 4X/DAY PRN PRN #30 tab 07/08/20 Oxycodone HCl/Acetaminophen [Percocet 5/325] 1 tablet PO Q4H PRN PRN 7 Days #40 tablet 07/08/20 The following prescriptions were given: Cefadroxil [Duricef] 500 mg PO BID #30 cap Transmission Status: Pending to [facility] Oxycodone HCl/Acetaminophen [Percocet 5/325] 1 tablet PO Q4H PRN PRN 7 Days #40 tablet PRN Reason: Pain Score 6-10 Transmission Status: Sent to [facility] Diazepam [Valium] 5 mg PO 4X/DAY PRN PRN #30 tab PRN Reason: Spasms Transmission Status: Sent to [facility] Primary Care Physician: Fernando Ricardo MD [Primary Care Provider] - Test Results: Test results from this visit will be discussed in further detail at your follow-up appointment, if applicable. Please Follow Up With: Fitz Worley MD When: one week. call [phone] for appt. Proposed Discharge Date: 07/08/20
[2020-07-08] MEDS: oxyCODONE 5 MG Tablet PO (11:27)
[2020-07-08] MEDS: Acetaminophen 325 MG Tablet PO (11:28)
== END 2020-07-08 12:25 | disposition home or self-care (01) ==
LOC: SDC 06:04 → AC 06:04
PROVIDERS: Anesthesiology; PCP Family Medicine; Referring Provider Surgery; Visit Provider Surgery
PROC: (CPT 19120; principal; 2020-07-08 07:15)
DX: N63.42 Unspecified lump in left breast, subareolar (principal); N62 Hypertrophy of breast; N64.4 Mastodynia; N63.41 Unspecified lump in right breast, subareolar
CPT/HCPCS: 19120; 87635; 88305; C9803; J7120; J2405; U0003

== ENCOUNTER 2020-09-22 10:30 | Outpatient (RCR) | payer OTHER, SELFPAY ==
--- NOTE | 2020-09-20 09:27 | HP.OTEVAL ---
Patient's Visit Information NAPOLEON GONZALEZ is a 40 year old M, referred to Occupational Therapy by Betsy Lilly, BENITO-C, with a diagnosis of bilateral nipple hypersensitivity. Date of Evaluation: 09/19/20 Occupational Therapist: Santa Pantoja, EDUR/Melissa, CHT - Subjective This 40 year old male was seen for OT eval with dx of matodynia of bilateral breast- nipple hypersensitivity right worse than left since sx. pt states it has improved and he is able to miah. wearing a t-shirt now. Sx was 2019. pt states his right nipple is deformed with pucker near incision and has noticed along his right rib care a nodule that is painful to touch. pt would like to decrease pain so he can wear clothing and perform job duties without difficulty. - Pain bilateral nipple 3 Pain Intensity Range: 5 - Goals Goal:: pt will report no pain greater than 1/10 with use of clothing or work eq. by d/c Goal:: pt will demo a reduction in hypertrophic scaring of right nipple by d/c. pt will demo understanding of scar mtg by end of 3rd visit. pt will report ind. with scar gel at night by 2nd visit. pt will report ability to wear shirt and work without discomfort by d/c - Rehabilitation General Assessment: pt demo with ypertrophic scaring to right bottom of nipple- causing sensitivity and feeling of tightness with arm and shoulder ROM. pt also demo with sensitive mass in intercostal- with some nodules. (possible fluid build up from sx.) pt would benefit from skilled OT services 1-2 x a week for 4 weeks to decrease scar sensitivity, ed pt on scar mtg and desensitization angel. Today therapist was able to perform US to right scar region and ed pt on scar mt and desensitization- therapist gave scar gel to pt to wear at night advised to wear compression shirt over at night to prevent scar gel from falling off- pt ed in stretching and light manual lymph fluid movement angel. pt demo understanding and agree to POC. Rehabilitation Potential: Good - Anticipated Interventions Scar Care, Triggerpoint Release, Modalities, Manual Lymph Drainage, Home Program - Visit Plan Frequency: 1-2x /Week Duration: 4 Weeks TEXT: Thank you for the opportunity to evaluate your patient. For Medicare and Medicare HMO plans, please review the plan of care and approve it. It will need to be FAXED BACK to us at [phone] for Medicare purposes. Please let me know if there are questions or concerns regarding this plan of care. Physician Signature: Date:
--- NOTE | 2021-01-12 13:52 | HP.OT.NRP ---
NAPOLEON GONZALEZ was seen in my office for initial evaluation on 09/19/20. The following Plan of Care was established for this patient: Initial Frequency: 1-2x /Week Initial Duration: 4 Weeks Plan: cont with POC per use of k-tape. compression shirt Anticipated Interventions: Scar Care, Triggerpoint Release, Modalities, Manual Lymph Drainage, Home Program This patient was last seen in our office 09/22/20. Pertinent comments regarding their Occupational therapy will appear below: Pt was seen for 2 OT visits- therapist ed, pt on k-tape, compression shirts and padding for work gear- pt ed. on scar mtg and desensitization- pt has not scheduled further apts and is d/c at this time. At this point I will be discontinuing this patient from occupational therapy. I would be happy to see this patient again in the future if found appropriate by the physician. Thank you! Santa Pantoja, OTR/L, CHT
== END 2020-09-22 19:00 | disposition home or self-care (01) ==
LOC: OT 10:30
PROVIDERS: PCP Family Medicine; Referring Provider Nurse Practitioner Family; Visit Provider Nurse Practitioner Family
DX: N63.10 Unspecified lump in the right breast, unspecified quadrant (principal); N63.20 Unspecified lump in the left breast, unspecified quadrant; N62 Hypertrophy of breast; N64.4 Mastodynia
CPT/HCPCS: 97035; 97140; 97166

== ENCOUNTER → 2021-07-06 15:14 | Outpatient (CLI) | payer OTHER, SELFPAY ==
--- NOTE | 2021-07-06 15:20 | VDLE_ITS ---
Reason For Study: calf pain Procedure LEFT This is a venous duplex using B-mode, color GSV is normal. flow and spectral Doppler. CFV is compressible, spontaneous, phasic, Exam performed in department. competent, and demonstrates normal The exam was abbreviated due to the COVID 19 augmentation. protocol. FV is compressible, spontaneous, phasic, The exam was diagnostic. competent and demonstrates normal A preliminary report was called and/or faxed augmentation. to Dr. Major's office. POP V is compressible, spontaneous, phasic, competent and demonstrates normal augmentation. T/P Trunk is compressible. PTV is compressible. LT PerV is compressible. VL/Venous Duplex US, Unilateral Interpretation Summary Deep veins of the left lower extremity are patent and compressible segmentally. There is no evidence of left lower extremity deep vein thrombosis. Valvular competence appears intac t within the proximal deep venous system on the left . The left great saphenous vein appears patent a nd compressible segmentally. Ordering Physician: Paige Major Performed By: Kalpesh Mcmillan RVT
== END ==
PROVIDERS: PCP Family Medicine; Referring Provider Internal Medicine; Visit Provider Internal Medicine
DX: M79.662 Pain in left lower leg (principal)
CPT/HCPCS: 93971

== ENCOUNTER → 2021-07-10 12:01 | Outpatient (CLI) | payer OTHER, SELFPAY ==
--- NOTE | 2021-07-10 12:10 | CT_ITS ---
STUDY: CTA CHEST REASON FOR EXAM: Male, 40 years old. Shortness of breath RADIATION DOSAGE (If Supplied By Facility): CTDIvol = ( 10.40 ) mGy, DLP = ( 438.44 ) mGycm TECHNIQUE: The examination was performed with the intravenous administration of IV 100mL Isovue-370. Post-processing of the angiographic images was performed, with multiplanar reformation and 3D reconstruction. Individualized dose optimization techniques were used for this CT. COMPARISON: None. FINDINGS: There is no acute or chronic pulmonary embolism. Aorta is of normal caliber. Lungs are clear. There is no pneumothorax, pulmonary edema or pleural effusions. Mediastinal contents are normal. Osseous structures are intact. Abdominal structures are unremarkable. CT/CTA Chest W/WO Contrast IMPRESSION: 1. No pulmonary embolism 2. Normal chest. Electronically Signed: Dale Bhandari MD at 13:14 EDT Tel , Service support ,
== END ==
PROVIDERS: PCP Family Medicine; Referring Provider Internal Medicine; Visit Provider Internal Medicine
DX: R06.02 Shortness of breath (principal)
CPT/HCPCS: 71275; Q9967

== ENCOUNTER 2021-10-26 09:04 | Outpatient (CLI) | payer MEDICAID, SELFPAY ==
[2021-10-26 12:30] LABS: Absolute Lymphocyte Count 1.03 X10^3/uL (0.83-4.51); Basophil# 0.02 X10^3/uL; Basophil% 0.4 % (0-1); Eosinophil# 0.09 X10^3/uL; Eosinophils% 1.6 % (0-5); Hematocrit 44.2 % (40-54); Hemoglobin 15.6 g/dL (13.0-16.5); Lymphocyte # 1.03 X10^3/ul (0.83-4.51); Lymphocyte % 18.5 % (19-41); Mean Corp Hgb Conc 35.3 g/dL (32-36); Mean Corpuscular Hgb 31.4 pg (27.0-32.0); Mean Corpuscular Volume 88.9 fL (80-94); Mean Platelet Vol. 11.4 fl (6.2-12.0); Monocyte# 0.46 X10^3/uL; Monocyte% 8.3 % (0-10); NRBC Flagged by Analyzer 0 % (0-5); Neutrophil # 3.95 X10^3/uL (2.7-7.7); Platelet Count 166 K/mm3 (150-450); RBC Distribution Width CV 12.1 % (11.6-14.6); RBC Distribution Width SD 39.7 fl (35.1-43.9); Red Blood Count 4.97 M/mm3 (4.6-6.2); White Blood Count 5.6 K/mm3 (4.4-11.0)
[2021-10-26 12:47] LABS: Vitamin B12 547 pg/mL (211-911); Vitamin D,25 Hydroxy 58.5 ng/mL
[2021-10-26 14:35] LABS: Estradiol 19.2 pg/mL; Ferritin 148 ng/mL (26-388); Follicle Stimulating Hormone 1.9 mIU/mL; Luteinizing Hormone 3.1 mIU/mL; T4 Free Direct 1.13 ng/dL (0.76-1.46); Thyroid Stim Hormone (TSH) 1.01 uIU/mL (0.358-3.74)
[2021-10-30 18:08] LABS: Testosterone, % Free 2.12 % (1.50-4.20); Testosterone, Free 9.52 ng/dL (5.00-21.00)
[2021-10-30 21:38] LABS: Testosterone, Total 449 ng/dL (264-916); Thyroid Peroxidase AB < 8 IU/mL (0-34)
== END 2021-10-26 23:59 | disposition short-term general hospital (02) ==
LOC: BIMLAB 09:05
PROVIDERS: PCP Family Medicine; Referring Provider Internal Medicine Endocrinology, Diabetes & Metabolism; Visit Provider Internal Medicine Endocrinology, Diabetes & Metabolism
DX: N62 Hypertrophy of breast (principal); E29.1 Testicular hypofunction; E55.9 Vitamin D deficiency, unspecified; Z12.5 Encounter for screening for malignant neoplasm of prostate
CPT/HCPCS: 36415; 82306; 82607; 82670; 82728; 83001; 83002; 84402; 84403; 84439; 84443; 85025; 86376

== ENCOUNTER → 2022-12-25 | Outpatient (CLI) | payer OTHER, MEDICAID, SELFPAY ==
[2022-12-25 10:28] LABS: Estradiol 17.8 pg/mL; Luteinizing Hormone 2.7 mIU/mL; PSA,Total - Annual Screen 0.49 ng/mL (0.00-4.00); Prolactin 4.7 ng/mL
[2022-12-26 10:02] LABS: Sex Hormone-binding Globulin 29.1 nmol/L (16.5-55.9)
== END | disposition home or self-care (01) ==
PROVIDERS: PCP Family Medicine; Referring Provider Registered Nurse; Visit Provider Registered Nurse
DX: E29.1 Testicular hypofunction (principal); R53.83 Other fatigue; R68.82 Decreased libido; R63.5 Abnormal weight gain; R35.0 Frequency of micturition; R39.16 Straining to void; Z12.5 Encounter for screening for malignant neoplasm of prostate
CPT/HCPCS: 36415; 82627; 82670; 83001; 83002; 84146; 84153; 84270; 82626; G0103

== ENCOUNTER → 2023-01-09 | Outpatient (CLI) | payer OTHER, MEDICAID, SELFPAY ==
[2023-01-09 10:48] LABS: Hematocrit 43.3 % (40-54); Hemoglobin 14.8 g/dL (13.0-16.5)
[2023-01-09 11:02] LABS: ALB/GLOB Ratio 1.4 RATIO (0.9-2.4); AST(SGOT) 29 U/L (15-37); Alanine Aminotransfer ALT/SGPT 33 U/L (16-61); Albumin, Serum 3.9 g/dL (3.2-5.0); Alkaline Phosphatase 68 U/L (45-117); Anion Gap 2 (5-15); BUN 17 mg/dL (7-18); BUN/Creat Ratio 19.4 RATIO (10-20); Calcium,Total 8.8 mg/dL (8.5-10.1); Chloride 107 mmol/L (98-107); Cholesterol 119 mg/dL (200); Creatinine, Serum 0.88 mg/dL (0.70-1.30); EST Glomerular Filtration Rate 101 mL/min (>60); Est Glom Filt Rate - Afr Amer 122 mL/min (>60); Globulin 2.8 g/dL (2.2-4.2); Glucose 72 mg/dL (74-106); High Density Lipoprotein 41 mg/dL; Potassium 3.8 mmol/L (3.5-5.1); Protein, Total 6.7 g/dL (6.4-8.2); Sodium Level 137 mmol/L (136-145); Thyroid Stim Hormone (TSH) 1.13 uIU/mL (0.358-3.74); Triglycerides 41 mg/dL; Very Low Density Lipoprotein 8 mg/dL (5-40)
[2023-01-14 14:08] LABS: Testosterone, Free 8.27 ng/dL (5.00-21.00)
[2023-01-14 15:57] LABS: Testosterone, % Free 2.17 % (1.50-4.20); Testosterone, Total 381 ng/dL (264-916)
== END | disposition home or self-care (01) ==
PROVIDERS: PCP Family Medicine; Referring Provider Registered Nurse; Visit Provider Registered Nurse
DX: E29.1 Testicular hypofunction (principal); R53.83 Other fatigue; R68.82 Decreased libido; R35.0 Frequency of micturition; R39.16 Straining to void
CPT/HCPCS: 36415; 80053; 80061; 84402; 84403; 84443; 85014; 85018

== ENCOUNTER → 2023-04-24 | Outpatient (CLI) | payer OTHER, MEDICAID, SELFPAY ==
[2023-04-24 10:45] LABS: Hematocrit 50.5 % (40-54)
[2023-04-24 15:38] LABS: ALB/GLOB Ratio 1.2 RATIO (0.9-2.4); AST(SGOT) 21 U/L (15-37); Alanine Aminotransfer ALT/SGPT 27 U/L (16-61); Albumin, Serum 3.9 g/dL (3.2-5.0); Alkaline Phosphatase 75 U/L (45-117); Anion Gap 2 (5-15); BUN 15 mg/dL (7-18); BUN/Creat Ratio 13.6 RATIO (10-20); Calcium,Total 8.8 mg/dL (8.5-10.1); Chloride 107 mmol/L (98-107); Cholesterol 128 mg/dL (200); EST Glomerular Filtration Rate 77 mL/min (>60); Est Glom Filt Rate - Afr Amer 94 mL/min (>60); Estradiol 31.2 pg/mL; Follicle Stimulating Hormone 0.4 mIU/mL; Globulin 3.2 g/dL (2.2-4.2); Glucose 57 mg/dL (74-106); High Density Lipoprotein 39 mg/dL; Luteinizing Hormone < 0.2 mIU/mL; PSA,Total- Diagnostic 0.84 ng/mL (0.0-4.0); Potassium 4.3 mmol/L (3.5-5.1); Prolactin 6.5 ng/mL; Protein, Total 7.1 g/dL (6.4-8.2); Sodium Level 140 mmol/L (136-145); Thyroid Stim Hormone (TSH) 1.19 uIU/mL (0.358-3.74); Triglycerides 69 mg/dL; Very Low Density Lipoprotein 14 mg/dL (5-40)
[2023-04-29 11:07] LABS: Sex Hormone-binding Globulin 25.2 nmol/L (16.5-55.9); Testosterone, Free 19.68 ng/dL (5.00-21.00); Testosterone, Total 820 ng/dL (264-916)
== END | disposition home or self-care (01) ==
PROVIDERS: PCP Family Medicine; Referring Provider Registered Nurse; Visit Provider Registered Nurse
DX: E29.1 Testicular hypofunction (principal); R53.83 Other fatigue; R63.5 Abnormal weight gain; R39.16 Straining to void; R68.81 Early satiety
CPT/HCPCS: 36415; 80053; 80061; 82627; 82670; 83001; 83002; 84146; 84153; 84270; 84402; 84403; 84443; 85014; 85018; 82626

== ENCOUNTER → 2023-12-20 | Outpatient (CLI) | payer OTHER, SELFPAY ==
[2023-12-20 10:23] LABS: Hematocrit 49.1 % (40-54); Hemoglobin 16.7 g/dL (13.0-16.5)
[2023-12-20 17:15] LABS: ALB/GLOB Ratio 1.1 RATIO (0.9-2.4); AST(SGOT) 36 U/L (15-37); Alanine Aminotransfer ALT/SGPT 28 U/L (16-61); Albumin, Serum 3.6 g/dL (3.2-5.0); Alkaline Phosphatase 67 U/L (45-117); Anion Gap 8 (5-15); BUN 13 mg/dL (7-18); Calcium,Total 8.9 mg/dL (8.5-10.1); Chloride 107 mmol/L (98-107); Cholesterol 106 mg/dL (200); Creatinine, Serum 1.18 mg/dL (0.70-1.30); EST Glomerular Filtration Rate 71 mL/min (>60); Est Glom Filt Rate - Afr Amer 86 mL/min (>60); Estradiol < 11.0 pg/mL; Follicle Stimulating Hormone 0.6 mIU/mL; Globulin 3.3 g/dL (2.2-4.2); Glucose 105 mg/dL (74-106); High Density Lipoprotein 37 mg/dL; Luteinizing Hormone 0.2 mIU/mL; PSA,Total - Annual Screen 0.73 ng/mL (0.00-4.00); Potassium 4.1 mmol/L (3.5-5.1); Prolactin 5.7 ng/mL; Protein, Total 6.9 g/dL (6.4-8.2); Sodium Level 140 mmol/L (136-145); Thyroid Stim Hormone (TSH) 1.12 uIU/mL (0.358-3.74); Triglycerides 54 mg/dL; Very Low Density Lipoprotein 11 mg/dL (5-40)
[2023-12-25 14:10] LABS: Sex Hormone-binding Globulin 21.1 nmol/L (16.5-55.9); Testosterone, % Free 4.75 % (1.50-4.20); Testosterone, Free 37.86 ng/dL (5.00-21.00); Testosterone, Total 797 ng/dL (264-916)
== END | disposition home or self-care (01) ==
LOC: MTLAB 07:37
PROVIDERS: PCP Family Medicine; Referring Provider Registered Nurse; Visit Provider Registered Nurse
DX: E29.1 Testicular hypofunction (principal); R53.83 Other fatigue; R68.82 Decreased libido; R63.5 Abnormal weight gain; R35.0 Frequency of micturition; R39.16 Straining to void; Z12.5 Encounter for screening for malignant neoplasm of prostate
CPT/HCPCS: 36415; 80053; 80061; 82627; 82670; 83001; 83002; 84146; 84153; 84270; 84402; 84403; 84443; 85014; 85018; 82626; G0103

== ENCOUNTER 2024-02-07 07:27 | Day surgery (SDC) | payer OTHER, SELFPAY ==
--- NOTE | 2024-02-07 06:46 | PCM.HP.BLA ---
History and Physical Date of Admission: 02/07/24 HISTORY OF PRESENT ILLNESS 43 year old man presents with soft tissue masses on his bilateral upper extremities that have increased in size over the last several months and have become more painful when bumped. He denies fever. He denies any ulceration or drainage. 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 He presents at this time for further evaluation and treatment. PAST MEDICAL HISTORY Angiolipoma Bilateral mastodynia Breast mass, left Breast mass, right Dysesthesia Hypogonadism in male Lipoma Localized superficial swelling, mass, or lump Mass of left upper extremity Mass of right upper extremity Renal insufficiency PAST SURGICAL HISTORY H/O excision of mass History of breast lump/mass excision ALLERGIES shellfish MEDICATIONS NK FAMILY HISTORY Father High cholesterol SOCIAL HISTORY Smoking Status: Never smoker alcohol intake: current alcohol intake frequency: holidays/special occasions only substance use type: does not use REVIEW OF SYSTEMS General - Denies fever, fatigue, and weight loss. Eyes - Denies cataracts and glaucoma. ENT - Denies nasal congestion and sore throat. Endocrine - Denies excessive thirst and urination. Had bilateral painful breast masses excised in 2019. Has low Testosterone. Has enlarging painful soft tissue masses bilateral arms and right forearm. Skin - Denies suspicious lesions and skin cancer. Musculoskeletal - Denies joint pain, joint stiffness, weakness of muscles and joints, back pain, and arthritis. Neuro - Denies headaches. Cardiovascular - Denies chest pain, fatigue, and shortness of breath with exertion. Psych - Denies anxiety and depression. Respiratory - Denies chronic cough and shortness of breath. Gastrointestinal - Denies nausea, vomiting, diarrhea, and constipation. Hematologic - Denies abnormal bruising and bleeding. Genitourinary - Denies hematuria and urinary frequency. PHYSICAL EXAMINATION General - Alert and Oriented HEENT - PERRL. EOMI. Throat is clear. Neck - Supple and nontender. No cervical adenopathy. No suspicious lesions noted. Chest - No suspicious lesions noted. No breast masses noted. Lungs - Clear to auscultation. Heart - Regular rate and rhythm. Abdomen - Soft and nondistended. Extremities - FROM. No axillary adenopathy. Radial pulses are palpable. On the left distal medial arm is a soft tissue mass that measures 2.5 cm. It is mobile. Slight tenderness to palpation. No ulceration. On the right anterolateral distal arm is a soft tissue mass that measures 2.5 cm. It is mobile. Slight tenderness to palpation. No ulceration. On the right proximal volar forearm is a soft tissue mass that measures 3 cm. It is mobile. Slight tenderness to palpation. Neuro - CN II-XII grossly intact. Psych - Normal mood and affect. ASSESSMENT 1. 2.5 cm painful soft tissue mass left distal medial arm. 2. 2.5 cm painful soft tissue mass right anterolateral distal arm. 3. 3 cm painful soft tissue mass right proximal volar forearm. PLAN Recommend excising these painful soft tissue masses (left distal medial arm, right anterolateral distal arm, right proximal volar forearm) and sending them to Pathology for analysis to rule out carcinoma. Clinically they are consistent with angiolipomas. Surgery can be done under local anesthesia on an outpatient basis. Patient is not interested in IV Sedation at this time as he wants to drive himself home. Patient was informed of the risks and complications of the procedure including alternatives to surgery. These were discussed with the patient personally. Patient voices understanding and wishes to proceed. Some of the risks and complications were included in a form from the [employer]. Potential risks and complications included but not inclusive of bleeding, infection, seroma, hematoma, bruising, swelling, prolonged need for drains, loss of sensation to skin, wound breakdown, need for wound care, poor scarring, poor aesthetic outcome, intra operative cardiac or neurologic events, DVT, PE, and reaction to anesthesia. He will check his work schedule and let us know his availability for the surgery. Postop he will wear compression ever wraps for 6 weeks. 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 The compression ever wraps should minimize that. Assessment & Plan Assessment/Plan (1) Mass of right upper extremity: (2) Mass of left upper extremity: (3) Dysesthesia:
[2024-02-07 07:57] VITALS: BP 129/90; PULSE 85; RESP 16; TEMP 36.8; O2SAT 100; BMI 29.8
[2024-02-07 08:16] VITALS: BP 136/98; BP 137/94; O2SAT 97
--- NOTE | 2024-02-07 08:30 | TISS_PTH ---
PATIENT: NAPOLEON GONZALEZ LOC: [facility] – [place] U#:[id number] AGE/SX: 43/M ROOM: RE02/07/[address]: Dr. Fitz Worley MD : 1980 BED: DIS: 02/07/2024 SPEC #: [id number] RECD: 02/07/24 11:00 STATUS: MARISSA JOSH #: [id number] SAMI: 02/07/24 08:[address]: Fitz Worley DEPT: SURGICAL PATHOLOGY RECD BY: Darrick Dodson ENTERED: 02/07/24 11:45 SP TYPE: Tissue Bx RHETT DR: Dr. Elton Ricardo MD Tissues: A - TISSUE SURGICALLY REMOVED B - TISSUE SURGICALLY REMOVED C - TISSUE SURGICALLY REMOVED Procedures: Surgery Specimen Level IV HEADER OPERATION: Excision painful soft tissue masses left arm, right arm PRE-OP DIAGNOSIS: Mass of right upper extremity, mass of left upper extremity, dysesthesia TISSUE SUBMITTED: A- 2.5cm soft tissue mass- left distal arm, B- 2.5cm soft tissue mass- right anterolateral distal arm, C- 3cm soft tissue mass- right proximal volar forearm MICROSCOPIC DIAGNOSIS A. Soft tissue mass, left distal arm, excision: Angiolipoma. B. Soft tissue mass, right anterolateral distal arm, excision: Angiolipoma . C. Soft tissue mass, right proximal volar forearm, excision: Angiolipoma. DONAVON/ 02/10/2024 MICROSCOPIC DESCRIPTION Slides are reviewed. GROSS DESCRIPTION A. Received in fixative is one container labeled with the patient's name and designated 2.5cm soft tissue- left distal medial arm. The specimen consists of an ovoid to slight area of rubbery piece of adipose tissue measuring 2.2 x 1.8 x 0.8cm. Sections reveal yellow adipose cut surfaces without area of hemorrhage, necrosis, or cystic degeneration. A small piece of adipose tissue is also noted measuring 0.5 x 0.5 x 0.2cm. The entire specimen is submitted in two cassettes. B. Received in fixative is one container labeled with the patient's name and designated 2.5cm soft tissue mass- right anterolateral distal arm. The specimen consists of a piece of yellow adipose tissue measuring 2.5 x 2.5 x 1.0cm. Sections reveal yellow adipose cut surfaces without area of hemorrhage, necrosis or cystic degeneration. The entire specimen is submitted in two cassettes. C. Received in fixative is one container labeled with the patient's name and designated 3.0cm soft tissue- right proximal volar forearm. The specimen consists of three variable size pieces of yellow adipose tissue measuring in aggregate 4.0 x 3.0 x 0.6cm. Sections reveal yellow adipose cut surfaces without area of hemorrhage, necrosis or cystic degeneration. The entire specimen is submitted in two cassettes. Tom 02/07/2024 TC:1 CPT:73116q1
[2024-02-07] MEDS: Cefadroxil 500 MG CAPSULE PO (08:39)
[2024-02-07 09:03] VITALS: BP 127/97; BP 135/94; BP 144/73; BP 144/82; BP 145/88; BP 145/99; BP 146/83; BP 147/84; BP 152/73; BP 153/83; BP 156/95; BP 158/93; BP 164/79; BP 93/54; O2SAT 100; O2SAT 98; O2SAT 99
[2024-02-07] MEDS: Lidocaine 1% /Epi 1:100 (20ml) 20 ML Vial (09:04)
[2024-02-07] MEDS: Mupirocin Ointment 22gm Tube 1 APPLIC (09:58)
--- NOTE | 2024-02-07 10:08 | OP.PCM_ITS ---
Problems Associated Problem List Diagnoses (1) Dysesthesia: (2) Mass of left upper extremity: (3) Mass of right upper extremity: Report of Operation Date of Procedure: 02/07/24 Pre-Operative Diagnosis: 1. 2.5 cm painful soft tissue mass left distal medial arm. 2. 2.5 cm painful soft tissue mass right anterolateral distal arm. 3. 3 cm painful soft tissue mass right proximal volar forearm. Post-Operative Diagnosis: Same. Surgery/Procedure Performed:: 1. Excision 2.5 cm painful soft tissue mass left distal medial arm with 2.5 cm layered closure. 2. Excision 2.5 cm painful soft tissue mass right anterolateral distal arm with 2.5 cm layered closure. 3. Excision 3 cm painful soft tissue mass right proximal volar forearm with 3.5 cm layered closure. Description of Surgical Findings:: 43 year old man presents with soft tissue masses on his bilateral upper extremities that have increased in size over the last several months and have become more painful when bumped. He denies fever. He denies any ulceration or drainage. 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 He presents at this time for further evaluation and treatment. Surgeon: Fitz Worley MD vocational guidance counselor: None Type of Anesthesia: Local Anesthesiologist: None. Specimen's removed: 1. Painful soft tissue mass left distal medial arm. 2. Painful soft tissue mass right anterolateral distal arm. 3. Painful soft tissue mass right proximal volar forearm. Drains: None. Estimated Blood Loss (mL): 5. Description of Procedure: Patient was taken to OR in supine position. The bilateral upper extremities were prepped and draped in the usual fashion. SCD's were not placed for DVT prophylaxis since it was a short case under local anesthesia. Perioperative antibiotics were given. The soft tissue masses (left distal medial arm, right anterolateral distal arm, and Right proximal volar forearm) were infiltrated personally with xylocaine and epinephrine. After waiting 5 minutes for the anesthetic to take effect, I made oblique incisions into the subcutaneous tissue in all 3 areas (2.5 cm for left distal medial arm, 2.5 cm for right anterolateral distal arm, and 3 cm right proximal volar forearm). Some oozing seen. Hemostasis was obtained with electrocautery. The masses were sharply dissected into the subcutaneous. There was no adherence to the muscles. They were multilobulated. Clinically a lipoma. Await final pathology report. The wounds were irrigated with saline. These three wounds were closed with a multilayered closure. The deep dermis and subcutaneous tissue was approximated with 3-0 Monocryl. The skin was approximated with 4-0 Prolene simple interrupted and vertical mattress sutures. The length of the 3 closures were 8 cm. Antibiotic ointment was applied followed by a gauze dressing and ever wraps. Patient tolerated the procedure well and will be sent back to their preoperative rooms in ([employer]). Patient received his instructions and changed his clothes and departed in a fairly quick fashion. Patient will be sent home on antibiotics and pain medication. Patient will followup in a week for a wound check and for discussion of the pathology report. The sutures will be removed in 2 weeks. Procedure Start Time: 09:05 Procedure Stop Time: 10:06 Complications None. Admit VTE Documentation VTE Present on Admission: No VTE Mechan Device Prophylaxis: None (This procedure was short and under local anesthesia.) VTE Pharm Prophylaxis ordered?: No Reason prophylaxis not ordered:: Procedure Not Indicated (This procedure was short and under local anesthesia.) Addendum Addendum: Surgery Charges CPT - 28304 ICD-10 - R22.32, R20.8 55680 R22.31, R20.8 04986 R22.31, R20.8 70249 R22.31, R22.32, R20.8
--- NOTE | 2024-02-07 10:08 | DCINST_ITS ---
Discharge Instructions Diet Discharge Diet: No restrictions Activity Discharge Activity: May Drive (when not taking pain medication.), May Shower (in two days.) and - (no heavy lifting one week.) Return to work on:: 02/13/24 (tentative) May shower in (days): 2 May resume sexual activity in: No Restrictions Weight Bearing Status: Weight bearing as tolerated Lifting Restrictions: 20 lbs Keep extremity elevated above heart level: Operative Extremity (when not active (i.e., eating dinner, watching TV)) Dressing / Incision Call your doctor if your incision/area has: Continuous Slow Oozing, Sudden Increased Bleeding, Increased Pain/ Swelling, Increased Redness, Foul Smelling Discharge and Swelling at the incision site Call your doctor if you observe: Fever of 101 or Higher, Coldness, Increased Pain, Shortness of breath, Chest pain, Calf discomfort and Uncontrolled pain Change Dressing in: 2 days (after shower apply antibiotic ointment followed by a bandaid or gauze followed by ever wrap.) Cleanse incision/area with: Soap & Water (may get incisions wet in the shower after operative dressing removed in two days.) Follow Up Care Please Follow Up With: Fitz Worley MD When: one week, 02/14/24. Call [phone] for appt. Test Results: Test results from this visit will be discussed in further detail at your follow- up appointment, if applicable. Discharge Plan Admission Primary Reason for Your Visit: excision soft tissue masses bilateral upper extremities. Attending Provider: Fitz Worley Primary Care Provider: Elton Ricardo Discharge Orders/Prescriptions Prescriptions: New cefadroxil 500 mg capsule 500 mg PO BID Qty: 10 0RF Rx Instructions: patient may eat yogurt while taking the antibiotics to minimize colitis. oxycodone-acetaminophen [Percocet] 5-325 mg tablet 1 tab PO BID 5 Days Qty: 10 0RF Rx Instructions: 10 tabs (ten) Referrals / Follow Up: Elton Ricardo MD [Primary Care Provider] - Fitz Worley MD [Med Staff - Active Staff] - In 1 Week Disposition Disposition (needs filled in before D/C Order can be placed): Home, Self Care
[2024-02-07 10:17] VITALS: BP 175/100; PULSE 91; RESP 16; TEMP 36.7; O2SAT 98
--- NOTE | 2024-02-07 10:22 | PCM.PN.BLA ---
Progress Note Patient had surgery today, 02/07/24. Patient may return to work on , 02/13/24.
== END 2024-02-07 10:31 | disposition home or self-care (01) ==
LOC: SDC 07:28 → AC 07:30
PROVIDERS: PCP Family Medicine; Referring Provider Surgery; Visit Provider Surgery
PROC: (CPT 24075; principal; 2024-02-07 08:15)
DX: D17.21 Benign lipomatous neoplasm of skin and subcutaneous tissue of right arm (principal); D17.22 Benign lipomatous neoplasm of skin and subcutaneous tissue of left arm; R20.8 Other disturbances of skin sensation
CPT/HCPCS: 24075; 25071; 12034; 01710; 88305; J7120

== ENCOUNTER 2024-03-06 21:52 | Emergency (ER) | payer OTHER, SELFPAY ==
[2024-03-06 21:53] VITALS: BP 148/98; PULSE 102; RESP 14; TEMP 37.1; O2SAT 98; BMI 29.4
--- NOTE | 2024-03-06 22:04 | CT_ITS ---
INDICATION: trauma EXAMINATION: CT Lower Extremity W/O Contrast Injection TECHNIQUE: Helically acquired images were obtained of the left foot. 2-D reformats were performed by the technologist. A radiation dose optimization technique was used for this scan. IV Contrast dosage and agent: None. COMPARISON: None. FINDINGS: BONES AND ALIGNMENT: No acute fractures. The alignment is anatomic. JOINTS: No degenerative changes are seen. SOFT TISSUES: Minimal soft tissue swelling. CT/Extremity Lower without Contra IMPRESSION: No acute traumatic abnormalities. Electronically Signed: Elton Lozada MD at 22:44 EDT ,
--- NOTE | 2024-03-06 22:07 | EDS_ITS ---
HPI History of Present Illness Chief Complaint: Trauma Informant: patient Narrative Narrative: 43-year-old male presenting to the emergency room with left knee and foot pain from a fall. Patient states that today around noon he was painting his house about 15 feet up when he fell. He states he landed on his feet left greater than right. He notes pain proximal left calf into the posterior knee. He notes pain on the midfoot of the left. He states he must of hit something with his right wrist that he notes swelling and tenderness/abrasion over the medial surface. He denies any back pain. No abdominal pain. He states that the day is gone on he has had increasing pain with attempted ambulation. He denies pain in the right lower extremity [facility] Medical History Non-smoker Mass of right upper extremity Mass of left upper extremity Hypogonadism in male Breast mass, left Breast mass, right Bilateral mastodynia Dysesthesia Renal insufficiency Localized superficial swelling, mass, or lump Angiolipoma Lipoma Home Medications ?Medication ?Instructions ?Recorded ?Last Taken ?Type cefadroxil 500 mg capsule 500 mg PO BID #10 caps 02/07/24 Unknown Rx oxycodone-acetaminophen 5 mg-325 1 tab PO BID severe pain (greater 02/07/24 Unknown Rx mg tablet (Percocet) than 6) 5 days #10 tabs Allergy/AdvReac Type Severity Reaction Status Date / Time shellfish derived Allergy Anaphylaxis Verified 03/06/24 21:56 Family History Father High cholesterol Surgical History History of surgery History of breast lump/mass excision H/O excision of mass Social History Smoking Status: Never smoker alcohol intake: current alcohol intake frequency: holidays/special occasions only substance use type: does not use additional social history: DOES NOT USE ASPIRIN DOES NOT USE IBUPROFEN ROS ROS ED Constitutional Constitutional ED: Denies chills, fever(s) or weight loss Eyes Eyes: Denies change in vision or diplopia ENT ENT ED: Denies ear pain, rhinorrhea or sore throat Cardiovascular Cardiovascular: Denies chest pain, orthopnea, palpitations or racing heartbeat Respiratory/Chest Respiratory/Chest: Denies cough, dyspnea or orthopnea Gastrointestinal Gastrointestinal: Denies abdominal pain, diarrhea, nausea or vomiting Genitourinary Genitourinary ED: Denies dysuria, hematuria or urinary frequency Musculoskeletal Musculoskeletal: Reports other Details: see HPI ; Denies arthralgias, back pain, myalgias or neck pain Integumentary Reports Abrasions; Denies abscess or rash Neurologic Neurologic: Denies headache(s) or weakness Psychiatric Psychiatric: Denies anxiety, depression, suicidal ideation or suicidal thoughts Endocrine Endocrinology: Denies polydipsia, polyphagia or polyuria Allergic/Immunologic Allergic/Immunologic ED: Denies mouth swelling, tongue swelling or urticaria EXAM Physical Exam Const Vital Signs: 03/06/24 21:53 03/06/24 22:00 Temperature 98.7 F Temperature Source Temporal Pulse Rate 102 H Respiratory Rate 14 Respiratory Effort Normal Respiratory Depth Normal Respiratory Pattern Normal Blood Pressure 148/98 H Blood Pressure Mean 114 Pulse Ox 98 Oxygen Delivery Method Room Air Room Air Positive well nourished and well developed General Appearance ED: well developed HEENT Reports normocephalic, head/scalp atraumatic and moist mucous membranes Eyes PERRL and EOMs intact bilaterally Neck full ROM, no lymphadenopathy, supple and no JVD Resp normal respiratory effort and clear to auscultation bilaterally Cardio regular rate, regular rhythm and no murmurs GI normal to inspection, nondistended, normoactive bowel sounds and non-tender Palpation: soft Back/Spine no CVA tenderness, normal ROM and normal to inspection Extremity Extremity Narrative: TTP on the mid foot plantar suface, mild TTP of the mid foot on the dorsal surface with mild swelling lateral. Mild tenderness to palpation over the right medial posterior joint line. No palpable joint effusion felt. Ligaments appear stable. Ankle appears none tender. General Extremety ED: Negative for edema General Extremity: Negative for edema Neuro oriented x3, CN's II-XII intact bilaterally, moves all extremities, no focal motor deficits and no sensory deficits noted Sensorium / Orientation: alert Motor Exam: strength 5/5 throughout Psych mental status grossly normal Mood & Affect: Negative for depressed or tearful Skin no rashes or lesions noted and no wounds MDM MDM MDM Narrative Medical decision making narrative: Differential diagnosis includes but not limited to fracture meniscal injury tendon injury ligamentous injury. My independent interpretation of the plain films of the right wrist is no acute fracture or soft tissue swelling noted. My independent interpretation of the plain films of the left knee is no acute fracture no effusion. CT of the foot was obtained read by radiology reviewed by myself. No obvious fracture or large hematoma noted. Soft tissue swelling noted. Patient may use crutches ice and anti-inflammatories. If not better 10 to 14 days would suggest podiatry/orthopedics follow-up. Discharge Plan Triage Chief Complaint: Trauma Other Complaint: Fall ED Provider: Ryan Rivas Dx/Rx/DC Orders Clinical Impression: Fall from height of greater than 3 feet, Hematoma of right wrist, Sprain of left foot, Acute pain of left knee Instructions: ED Meniscal Injury Knee Poss, ED Foot Sprain Prescriptions: No Action cefadroxil 500 mg capsule 500 mg PO BID Qty: 10 0RF Rx Instructions: patient may eat yogurt while taking the antibiotics to minimize colitis. oxycodone-acetaminophen [Percocet] 5-325 mg tablet 1 tab PO BID 5 Days Qty: 10 0RF Rx Instructions: 10 tabs (ten) Primary Care Provider: Care Physician,No Primary Referrals: Elton Ricardo MD [Med Staff - Correctional Supervisor] - Nicolás Lin DO [Med Staff - Active Staff] - 10-14 Days if not better (for knee) Darleen Brown DPM [Med Staff - Active Staff] - 10-14 Days if not better (for foot) Activity Restrictions/Additional Instructions: Crutches as needed for weightbearing. Ice 20-minute sessions 3-4 times per day Tylenol and/or Motrin for pain If not better 10 to 14 days would suggest orthopedics/podiatry follow-up Print Language: German Disposition Disposition: Home, Self Care
--- NOTE | 2024-03-06 22:20 | RAD_ITS ---
INDICATION: TRAUMA EXAMINATION/TECHNIQUE: X-RAY - RIGHT XR Wrist Min 3 Views COMPARISON: None. FINDINGS: No acute fracture or malalignment. No blastic or lytic lesions. No degenerative changes are seen. Mild soft tissue swelling along the medial wrist. RAD/Wrist min 3 Views IMPRESSION: No acute fracture or malalignment. Electronically Signed: Elton Lozada MD at 22:50 EDT ,
--- NOTE | 2024-03-06 22:20 | RAD_ITS ---
INDICATION: TRAUMA EXAMINATION/TECHNIQUE: X-RAY - LEFT XR Knee Complete 4 Views or More COMPARISON: None. FINDINGS: No acute fracture or malalignment. No significant degenerative changes are seen. No joint effusion. The soft tissues are unremarkable. RAD/Knee 4 or More Views IMPRESSION: No acute radiographic abnormalities. Electronically Signed: Elton Lozada MD at 22:48 EDT ,
[2024-03-06 23:14] VITALS: RESP 16
== END 2024-03-06 23:17 | disposition home or self-care (01) ==
PROVIDERS: Emergency Provider Emergency Medicine; Visit Provider Emergency Medicine
DX: S60.211A Contusion of right wrist, initial encounter (principal); M25.562 Pain in left knee; W17.89XA Other fall from one level to another, initial encounter; Y93.89 Activity, other specified; Y92.89 Other specified places as the place of occurrence of the external cause; S93.602A Unspecified sprain of left foot, initial encounter
CPT/HCPCS: 73110; 73564; 73700; 99283

== ENCOUNTER → 2024-04-08 | Outpatient (CLI) | payer OTHER, SELFPAY ==
--- NOTE | 2024-04-08 12:48 | VDLE_ITS ---
Reason For Study: Edema RIGHT LEFT GSV is normal. CFV is compressible, spontaneous, phasic, CFV is compressible, spontaneous, phasic, competent, and demonstrates normal competent and demonstrates normal augmentation. augmentation. FV is compressible, spontaneous, phasic, competent and demonstrates normal augmentation. POP V is compressible, spontaneous, phasic, competent and demonstrates normal augmentation. T/P Trunk is compressible. PTV is compressible. RT PerV is compressible. Procedure This is a venous duplex using B-mode, color flow and spectral Doppler. Exam performed in department. A preliminary report was called and/or faxed to Dr. Chong. VL/Venous Duplex US, Unilateral Interpretation Summary Deep veins of the right lower extremity are patent and compressible segmentally . There is no evidence of right lower extremity deep vein thrombosis. The right great [place] vein appears patent and compressible segmentally. Ordering Physician: Caridad Chong Referring Physician: Caridad Chong Performed By: Corina Vidal RVT and Student
[2024-04-08 16:00] LABS: PSA,Total - Annual Screen 0.78 ng/mL (0.00-4.00)
== END | disposition home or self-care (01) ==
LOC: CVS 10:55
PROVIDERS: PCP Family Medicine; Referring Provider Family Medicine; Visit Provider Family Medicine
DX: R60.0 Localized edema (principal); R79.89 Other specified abnormal findings of blood chemistry
CPT/HCPCS: 36415; 84153; 84403; 93971; G0103

== ENCOUNTER → 2024-11-30 | Outpatient (CLI) | payer BC, SELFPAY ==
--- NOTE | 2024-11-30 12:55 | RAD_ITS ---
PROCEDURE: FOOT MIN 3 VIEWS REASON FOR EXAM: Pain and swelling TECHNIQUE: 3 view(s) of left foot. COMPARISON: None. FINDINGS: No visible fracture. No suspicious bone lesion. Normal alignment. Soft tissues are unremarkable. RAD/Foot min 3 Views IMPRESSION: No acute fracture or dislocation. Reading Location: [facility]
== END | disposition home or self-care (01) ==
LOC: MTRAD 12:49
PROVIDERS: PCP Family Medicine; Referring Provider Family Medicine; Visit Provider Family Medicine
DX: M79.671 Pain in right foot (principal); M79.89 Other specified soft tissue disorders
CPT/HCPCS: 73630

== ENCOUNTER → 2025-02-15 | Outpatient (CLI) | payer BC, SELFPAY ==
[2025-02-15 12:25] LABS: Hematocrit 47.4 % (40-54); Hemoglobin 16.5 g/dL (13.0-16.5)
[2025-02-15 13:27] LABS: Hemoglobin A1c 5.1 % (<=5.6)
[2025-02-15 14:53] LABS: Cholesterol 119 mg/dL (<=200); High Density Lipoprotein 35 mg/dL; Low Density Lipoprotein Calc. 63 mg/dL; Triglycerides 104 mg/dL; Very Low Density Lipoprotein 21 mg/dL (5-40); cholesterol:hdl ratio screen 3.37
[2025-02-15 15:05] LABS: ALB/GLOB Ratio 1.6 RATIO (0.9-2.4); AST(SGOT) 39 U/L (<=37); Alanine Aminotransfer ALT/SGPT 28 U/L (<=46); Albumin, Serum 4.3 g/dL (3.5-5.0); Alkaline Phosphatase 90 U/L (40-129); Anion Gap 10 (5-15); BUN 11 mg/dL (4-19); BUN/Creat Ratio 9.7 RATIO (10-20); Calcium,Total 9.3 mg/dL (7.6-11.0); Carbon Dioxide 24.2 mmol/L (21.0-32.0); Chloride 106 mmol/L (98-108); Creatinine, Serum 1.17 mg/dL (0.70-1.20); EST Glomerular Filtration Rate 78 (>60); Globulin 2.7 g/dL (2.2-4.2); Glucose 92 mg/dL (70-99); Sodium Level 140 mmol/L (133-145)
[2025-02-15 15:12] LABS: Total Bilirubin 0.54 mg/dL (0.00-1.30)
[2025-02-15 15:14] LABS: Estradiol 29.1 pg/mL; Follicle Stimulating Hormone < 0.3 mIU/mL; Luteinizing Hormone 0.3 mIU/mL; PSA,Total - Annual Screen 0.78 ng/mL (0.02-4.00); Thyroid Stim Hormone (TSH) 0.976 uIU/mL (0.300-4.200)
== END | disposition home or self-care (01) ==
PROVIDERS: PCP Family Medicine; Referring Provider Registered Nurse; Visit Provider Registered Nurse
DX: E29.1 Testicular hypofunction (principal); R53.83 Other fatigue; Z12.5 Encounter for screening for malignant neoplasm of prostate; R68.82 Decreased libido; R63.5 Abnormal weight gain; R35.0 Frequency of micturition; R39.16 Straining to void
CPT/HCPCS: 36415; 80053; 80061; 82627; 82670; 83001; 83002; 83036; 84146; 84153; 84270; 84402; 84403; 84443; 85014; 85018; 82626; G0103